=== PATIENT | female | born 1940 | race Caucasian/White ===

== ENCOUNTER 2022-02-27 09:29 | Inpatient (IN) | payer MEDICARE, BC ==
[2022-02-27] VITALS (13 sets, daily range): BP systolic 83–133; BP diastolic 52–95
[~2022-02-27] VITALS: Ht 165.1 cm; Wt 64.4 kg
[2022-02-27] MEDS ORDERED: IV NORMAL SALINE 1000 ML BAG IV ONE ×2 (09:30→10:30)
[2022-02-27] MEDS ORDERED: APIX2.5T PO (09:48)
[2022-02-27] MEDS ORDERED: AMIO100T4 PO (09:48)
[2022-02-27] MEDS ORDERED: D-MA1POW MC (09:48)
[2022-02-27] MEDS ORDERED: AMLO-212 PO (09:48)
[2022-02-27] MEDS ORDERED: DONE10TA44 PO (09:48)
[2022-02-27] MEDS ORDERED: MERC50TA PO (09:49)
[2022-02-27] MEDS ORDERED: ACET-73 PO (09:49)
[2022-02-27] MEDS ORDERED: ONDA4TAB11 PO (09:49)
[2022-02-27] MEDS ORDERED: SERT-439 PO (09:49)
[2022-02-27] MEDS ORDERED: LISI20TA30 PO (09:49)
[2022-02-27] MEDS ORDERED: HYDR453.3 TP (09:49)
[2022-02-27] MEDS ORDERED: METO25TA6 PO (09:49)
[2022-02-27] MEDS ORDERED: AMIODARONE HCL IV 900 MG in IV DEXTROSE 5% 500 ML IV ONE (10:00)
[2022-02-27] MEDS ORDERED: AMIODARONE HCL IV 150 MG in IV DEXTROSE 5% 100 ML IV ONE (10:00)
[2022-02-27 10:10] LABS: CARBON DIOXIDE 22 mmol/L (21-32); CHLORIDE 100 mmol/L (98-107); CREATININE 2.1 mg/dL (0.6-1.3); GLUCOSE 203 mg/dL (74-106); POTASSIUM 3.1 mmol/L (3.5-5.1); UREA NITROGEN, BLOOD 40 mg/dL (7-18)
[2022-02-27 10:22] LABS: ALANINE AMINOTRANSFERASE 29 U/L (14-59); ALKALINE PHOSPHATASE 94 U/L (50-136); ASPARTATE AMINOTRANSFERASE 36 U/L (15-37); BILIRUBIN,DIRECT 0.3 mg/dL (0.0-0.2); BILIRUBIN,TOTAL 1.5 mg/dL (0.2-1.0)
[2022-02-27 10:24] LABS: PHOSPHOROUS 4.6 mg/dL (2.5-4.9)
--- NOTE | 2022-02-27 10:25 | NUR ---
critical lab recieved from Jayne in lab, lactic 5.9 - results endorsed to
[2022-02-27] MEDS ORDERED: CEFTRIAXONE 1 G in IV DEXTROSE 5% 50 ML IV ONE (10:30)
[2022-02-27] MEDS ORDERED: CEFTRIAXONE /D5W 50ML IVPB **ER PYXIS IV ONE (10:33)
[2022-02-27 10:35] LABS: HEMATOCRIT 43.2 % (31.2-41.9); MEAN CORPUSCULAR HEMOGLOBIN 37.3 uug (24.7-32.8); MEAN CORPUSCULAR VOLUME 111.2 fL (75.5-95.3); PLATELET COUNT (AUTO) 381 K/uL (179-408)
[2022-02-27] MEDS: AMIODARONE HCL IV 450 MG in IV DEXTROSE 5% 250 ML IV PRN ×2 (10:40→17:10)
[2022-02-27] MEDS ORDERED: MAGNESIUM HYDROXIDE 30 ML LIQUID UDC PO PRN (11:00)
[2022-02-27] MEDS ORDERED: IV NS 1000 ML 1,000 ML IV PRN (11:00)
[2022-02-27] MEDS ORDERED: AMIODARONE HCL IV 450 MG in IV DEXTROSE 5% 250 ML IV PRN (11:00)
[2022-02-27] MEDS ORDERED: ACETAMINOPHEN 325 MG TABLET PO PRN (11:00)
[2022-02-27] MEDS ORDERED: ONDANSETRON 4 MG/2 ML VIAL IV PRN (11:00)
[2022-02-27] MEDS ORDERED: REMEDY ESSENTIAL ZINC PASTE 113 GM TP PRN (11:00)
--- NOTE | 2022-02-27 11:30 | NUR ---
Perineal care rendered.
[2022-02-27] MEDS ORDERED: PIPERACILLIN SODIUM/TAZOBACTAM 3.375 G in IV DEXTROSE 5% 50 ML IV SCH (12:00)
[2022-02-27] MEDS ORDERED: HYDROCORTISONE SOD SUCCINATE 100 MG/2 ML VIAL IV ONE ×2 (12:15→14:37)
[2022-02-27] MEDS ORDERED: ACETAMINOPHEN ES 500 MG TABLET- SA PATIENTS-PAIN ONLY PO PRN (12:15)
[2022-02-27] MEDS ORDERED: VANCOMYCIN IV 1,000 MG in IV DEXTROSE 5% 250 ML IV ONE (13:00)
--- NOTE | 2022-02-27 13:47 | NUR ---
Notified Rebecca Steven in regards to patient fluctuating blood pressure. BP drops to 80s systolic. Per Rebecca, she is trying to contact the son to clarify the POLST measures, and if vasopressors can be used on this patient.
[2022-02-27] MEDS ORDERED: ASPIRIN 300 MG RECTAL SUPP RC ONE ×2 (13:54→14:38)
--- NOTE | 2022-02-27 14:00 | NUR ---
At this time pt. transfer from 2A to room 1B via gurney and assisted by rn's. patient infusing with amiodarone drip running at 1mcg/kg/min. to RUHoney ML. Patient shaking uncontrollable and stating "I'm feeling cold" Hemodynamically on A-fib controlled uncontrolled. sbp of 117/70. Schulz to gravity with clear urine output. Over all pt. with history of skin CA and all over her body patient with skin bump lesions all over her body. Will continue to monitor.
[2022-02-27 14:07] LABS: *BILIRUBIN,URIN NEGATIVE (NEGATIVE); *BLOOD, URINE 1+ (NEGATIVE); *CLARITY,URINE SLIGHTLY CLOUDY (CLEAR); *COLOR,URINE LIGHT YELLOW (YELLOW); *KETONES,URINE NEGATIVE (NEGATIVE); *UROBILINOGEN,URINE 0.2 E.U./dl (NORMAL); LEUKOCYTE ESTERASE ,URINE 2+ (NEGATIVE); NITRITE, URINE POSITIVE (NEGATIVE); PH,URINE 5.5 (5.0-8.0); UGLUCOSE NEGATIVE (NEGATIVE)
--- NOTE | 2022-02-27 14:12 | NUR ---
PT's son and daughter at bedside and Rebecca Steven attending N.PEugenio at bedside discussing care plan with family.
[2022-02-27] MEDS: PIPERACILLIN/TAZO 2.25 G in IV DEXTROSE 5% 50 ML IV SCH ×2 (14:50→23:06)
[2022-02-27] MEDS ORDERED: ONDANSETRON 4 MG/2 ML VIAL ONE (15:30)
[2022-02-27 16:55] LABS: BACTERIA,URINE MA /HPF (NONE SEEN); SQUAMOUS EPITHELIAL CELL,UR FEW /HPF (NONE SEEN); WBC,URINE 20-50 /HPF (0-3)
[2022-02-27] MEDS ORDERED: PHENYLEPHRINE IV 100 MG in IV NORMAL SALINE 240 ML IV PRN (17:15)
[2022-02-27] MEDS ORDERED: POTASSIUM CHLORIDE 100 ML ONE (18:20)
[2022-02-27] MEDS: POTASSIUM CHLORIDE 50 ML IV SCH ×2 (18:21→19:09)
--- NOTE | 2022-02-27 19:15 | NUR ---
Pt received in bed awake and covered wiith several layers of cheets and blankets. Pt coered from the head with towels . Pt c/o feeling cold. Denir=es pain. Amiadarone drip infusing at 0.5 mg/hr via JALIL PICC line Cardias rhythm i shows atrial fibrillation on continuous cardiac monitoring,. Safety maintained. Bed in lowest position. Side rails up times 2. Pt is on room air. O2SAT 89 HR. Will continue to monitor. VS noted on nurses flow record. Skin color pale. Please reder to nursing flow record for skin asessment
--- NOTE | 2022-02-27 20:00 | NUR ---
Pt received in bed resting. Oriented to person. Reorient to pkace and time. Resp is unlabored. pT I
[2022-02-27] MEDS ORDERED: DONEPEZIL 10 MG TABLET PO SCH (21:00)
[2022-02-27] MEDS: APIXABAN 2.5 MG TABLET PO SCH (22:08)
--- NOTE | 2022-02-27 22:43 | NUR ---
Pt informed of swallow eval, and verbalizes understanding. Gag reflex present and patient was interactive with procedutre. Pt did not swallow. Pt held the water in her mouth before swallowing. Pill crushed and mixed water. No coughing while swallowing the fluid.
--- NOTE | 2022-02-27 22:51 | NUR ---
PT IS ON ROOM AIR. o2sAT 96. aMIADARONE DRIP AT .05 MG/HR AND INFUSING BU JALIL PICC LINE. pT HEAD IS CIVERED WITH TOWEL. PT ESTREMITIES ARE COLD AND LAYERS OF BLANKET IN PLACE. WILL CONTINU TO MONITOR STATUS.
[2022-02-27] MEDS ORDERED: PIPERACILLIN/TAZO 2.25 GM VIAL ONE (22:56)
[2022-02-27] MEDS ORDERED: PIPERACILLIN/TAZOBACTAM/D5W 50 ML ONE (22:56)
[2022-02-28] VITALS (27 sets, daily range): BP systolic 99–165; BP diastolic 40–100
[2022-02-28 06:09] LABS: MEAN CORPUSCULAR HEMOGLOBIN 38.6 uug (24.7-32.8); MEAN CORPUSCULAR VOLUME 107.9 fL (75.5-95.3); PLATELET COUNT (AUTO) 337 K/uL (179-408)
[2022-02-28 06:16] LABS: ALANINE AMINOTRANSFERASE 16 U/L (14-59); ALKALINE PHOSPHATASE 73 U/L (50-136); ASPARTATE AMINOTRANSFERASE 6 U/L (15-37); BILIRUBIN,TOTAL 0.7 mg/dL (0.2-1.0); CARBON DIOXIDE 23 mmol/L (21-32); CHLORIDE 106 mmol/L (98-107); CREATININE 2.1 mg/dL (0.6-1.3); GLUCOSE 106 mg/dL (74-106); MAGNESIUM 1.6 mg/dL (1.8-2.4); PHOSPHOROUS 4.2 mg/dL (2.5-4.9); TOTAL PROTEIN, SERUM 5.6 g/dL (6.4-8.2); UREA NITROGEN, BLOOD 40 mg/dL (7-18)
[2022-02-28 06:41] LABS: POTASSIUM 2.3 mmol/L (3.5-5.1)
[2022-02-28 06:42] LABS: VANCOMYCIN,RANDOM < 0.8 ug/mL (18.0-26.0)
[2022-02-28] MEDS ORDERED: PIPERACILLIN/TAZOBACTAM/D5W 50 ML ONE (07:24)
[2022-02-28] MEDS: PIPERACILLIN/TAZO 2.25 G in IV DEXTROSE 5% 50 ML IV SCH (07:36)
--- NOTE | 2022-02-28 08:00 | NUR ---
Assune care of Pt Received Pt semi awake. Arousable spontaneously. Pt is oriented times 3. S/O at the bedside, Resp iis even and unlabored. Received pt receiving Narcon drip infusing as ordered, by L forearm @ 50 ml/ hr. O2SAT is at 97% RR unlabored at 44. Pt HR is controlled, and noted on the nurses flow sheet per protocol. Temp 97.6 Will continue to monitor status.
[2022-02-28] MEDS ORDERED: PANTOPRAZOLE SODIUM 40 MG VIAL ONE (09:30)
[2022-02-28] MEDS ORDERED: SERTRALINE HCL 50 MG TABLET ONE (09:31)
[2022-02-28] MEDS: PANTOPRAZOLE SODIUM 40 MG VIAL IV SCH (09:43)
[2022-02-28] MEDS: SERTRALINE HCL 50 MG TABLET PO SCH (09:43)
[2022-02-28] MEDS: APIXABAN 2.5 MG TABLET PO SCH ×2 (09:43→21:33)
[2022-02-28] MEDS ORDERED: POTASSIUM CHLORIDE 50 ML ONE ×5 (09:47→15:16)
[2022-02-28] MEDS: POTASSIUM CHLORIDE 50 ML IV SCH ×6 (09:53→15:19)
[2022-02-28] MEDS ORDERED: MAGNESIUM SULFATE/D5W 100 ML IV SCH (10:00)
[2022-02-28] MEDS ORDERED: MAGNESIUM SULFATE/D5W 100 ML ONE (10:38)
--- NOTE | 2022-02-28 10:52 | NUR ---
Pt seen by Dr Stearns at this time. Patient is communicative. Abhijit camarillo off at this time. RR 16.. S/O is at [facility] bedside. Addendum: 02/28/22 at 1501 by [facility] RN3 RN Data ebtry error.
[2022-02-28] MEDS ORDERED: AMIODARONE HCL IV 450 MG in IV DEXTROSE 5% 250 ML IV PRN (11:30)
[2022-02-28] MEDS: VANCOMYCIN IV 750 MG in IV DEXTROSE 5% 250 ML IV SCH (11:47)
[2022-02-28] MEDS ORDERED: PIPERACILLIN/TAZOBACTAM/D5W 50 ML IV ONE (15:21)
[2022-02-28] MEDS: PIPERACILLIN SODIUM/TAZOBACTAM 3.375 G in IV DEXTROSE 5% 100 ML IV SCH (15:23)
--- NOTE | 2022-02-28 16:19 | NUR ---
Echo done at bedside at this time tolerating well.
[2022-03-01] VITALS (16 sets, daily range): BP systolic 92–149; BP diastolic 57–105
[2022-03-01] MEDS ORDERED: PIPERACILLIN SODIUM/TAZO 3.375 GM VIAL ONE (03:59)
[2022-03-01] MEDS ORDERED: PIPERACILLIN/TAZOBACTAM/D5W 50 ML IV ONE (04:00)
[2022-03-01] MEDS: PIPERACILLIN SODIUM/TAZOBACTAM 3.375 G in IV DEXTROSE 5% 100 ML IV SCH ×2 (04:44→16:00)
[2022-03-01 05:26] LABS: HEMATOCRIT 29.7 % (31.2-41.9); MEAN CORPUSCULAR HEMOGLOBIN 38.3 uug (24.7-32.8); MEAN CORPUSCULAR VOLUME 109.3 fL (75.5-95.3); PLATELET COUNT (AUTO) 299 K/uL (179-408)
[2022-03-01 05:34] LABS: CARBON DIOXIDE 25 mmol/L (21-32); CHLORIDE 103 mmol/L (98-107); CREATININE 2.2 mg/dL (0.6-1.3); GLUCOSE 233 mg/dL (74-106); MAGNESIUM 1.8 mg/dL (1.8-2.4); UREA NITROGEN, BLOOD 33 mg/dL (7-18)
[2022-03-01 05:38] LABS: POTASSIUM 2.6 mmol/L (3.5-5.1)
[2022-03-01] MEDS: APIXABAN 2.5 MG TABLET PO SCH ×2 (09:00→21:54)
[2022-03-01] MEDS: SERTRALINE HCL 50 MG TABLET PO SCH (09:00)
[2022-03-01] MEDS ORDERED: PANTOPRAZOLE SODIUM 40 MG VIAL ONE (09:17)
[2022-03-01] MEDS: PANTOPRAZOLE SODIUM 40 MG VIAL IV SCH (09:28)
[2022-03-01] MEDS ORDERED: POTASSIUM CHLORIDE 50 ML ONE (09:36)
[2022-03-01] MEDS: POTASSIUM CHLORIDE 50 ML IV SCH ×2 (09:42→10:03)
[2022-03-01] MEDS ORDERED: IV D5W-0.45% NS +20 KCL 1,000 ML IV PRN (09:45)
[2022-03-01] MEDS: VANCOMYCIN IV 750 MG in IV DEXTROSE 5% 250 ML IV SCH (11:40)
--- NOTE | 2022-03-01 13:32 | NUR ---
Seeing by BOOM CRANE OPERATOR this AM patient is waiting to be transferred to [facility] once bed becomes available as per BOOM CRANE OPERATOR. Nurse roustabout supervisor is aware.
--- NOTE | 2022-03-01 14:00 | NUR ---
[id number]--RECEIVED PT SLEEPY/LETHARGIC AT TIMES. VS ARE STABLE. PT CONT. IN A.FIB WITH HR 89-130. IV I/P VIARIGHT ARM PICC-LINE. PT CONT. ON AMIODORONE DRIP AT 0.5MG/HR. BATH AND LINEN CHANGE DONE.F/C I/P. U/O 250CC-YELL/SL. CLOUDY. PT HAS BEEN ON 02 2L/NC. PT HAS BEEN A/OX2-CONFUSED. PT AGITATED AT TIMES. PT MED WITH POTASSIUM 10MEQ IVPB BY PREVIOUS SHAILESH OSEI(BUT MED WASN'T SIGNED OFF-PHARM. INFORMED). GEN. COND. HAS BEEN STABLE/GUARDED. PT ENDORSED TO SHAILESH SLOAN. ARNALDO CASH
--- NOTE | 2022-03-01 20:00 | NUR ---
Pt received in bed with Amiadarone drip maintained at 5 mg/hr, AFIB with rapid response. HR 129. Pt c/o mouth pain. Will administer Tylenol, as ordered.
--- NOTE | 2022-03-01 21:21 | NUR ---
Pt tolerateds ice chip as ordered. OK to administer Eliquist now as per Dr Templeton.
[2022-03-01] MEDS ORDERED: DILTIAZEM HCL 30 MG TABLET ONE (21:50)
--- NOTE | 2022-03-01 22:00 | NUR ---
AMIADARONE DRIP IN PROGRESS ORDERED.. rATE OF DRIP 5 5MG/HR.
[2022-03-01] MEDS ORDERED: ACETAMINOPHEN 325 MG TABLET ONE (22:17)
[2022-03-02] VITALS (27 sets, daily range): BP systolic 102–157; BP diastolic 50–113
--- NOTE | 2022-03-02 | NUR ---
PT offered ice chips as ordered and tolerating. Amiadarone drip infusing at 5 mg/hr, as ordered. as ordered.
[2022-03-02] MEDS: DILTIAZEM HCL 30 MG TABLET PO SCH ×2 (00:24→06:37)
[2022-03-02] MEDS: PIPERACILLIN SODIUM/TAZOBACTAM 3.375 G in IV DEXTROSE 5% 100 ML IV SCH ×2 (04:21→15:40)
[2022-03-02 05:09] LABS: HEMATOCRIT 30.6 % (31.2-41.9); MEAN CORPUSCULAR HEMOGLOBIN 38.4 uug (24.7-32.8); MEAN CORPUSCULAR VOLUME 109.5 fL (75.5-95.3); PLATELET COUNT (AUTO) 310 K/uL (179-408)
[2022-03-02] MEDS ORDERED: DILTIAZEM HCL 30 MG TABLET ONE (05:15)
[2022-03-02 05:19] LABS: CARBON DIOXIDE 25 mmol/L (21-32); CHLORIDE 107 mmol/L (98-107); GLUCOSE 161 mg/dL (74-106); UREA NITROGEN, BLOOD 26 mg/dL (7-18)
[2022-03-02 05:27] LABS: POTASSIUM 2.7 mmol/L (3.5-5.1)
[2022-03-02] MEDS: POTASSIUM CHLORIDE 50 ML IV SCH ×4 (06:00→10:52)
[2022-03-02] MEDS ORDERED: POTASSIUM CHLORIDE 0 ML ONE (06:00)
[2022-03-02] MEDS ORDERED: POTASSIUM CHLORIDE 10 MEQ TAB.PRT.SR PO ONE (06:00)
[2022-03-02] MEDS ORDERED: POTASSIUM CHLORIDE 50 ML ONE ×2 (06:01→09:48)
[2022-03-02] MEDS ORDERED: POTASSIUM CHLORIDE 20 MEQ POWDER PACKET ONE (06:02)
[2022-03-02] MEDS ORDERED: POTASSIUM CHLORIDE 20 MEQ TAB.PRT.SR ONE (06:02)
[2022-03-02] MEDS ORDERED: MAGNESIUM SULFATE/D5W 100 ML IV SCH (06:45)
[2022-03-02] MEDS ORDERED: POTASSIUM CHLORIDE 20 MEQ POWDER PACKET PO STA (06:49)
--- NOTE | 2022-03-02 07:00 | NUR ---
Received pt. on monitoring manager afib-controlled/uncontrolled/sinus with rate up to 130's. sbp within desired limits. On room air with saturation of 94-97 %. Patient slightly distress. Follows commands. Schulz catheter to gravity picc line patent. Awaiting swallow eval. will continue to monitor.
--- NOTE | 2022-03-02 07:10 | NUR ---
A call to handle assembler Dr. Obando report given on the phone informed pt. remains on uncontrolled A-fib and on amiodarone drip. As stated "I'll follow up on pt. later on"
[2022-03-02] MEDS ORDERED: POTASSIUM CHLORIDE 20 MEQ POWDER PACKET GT ONE (08:00)
--- NOTE | 2022-03-02 08:05 | NUR ---
patient refused PO potasium 30 mg by mouth. kcl 20 meq IV given as ordered. Pharmacy notified of order and that medication was retrieved
--- NOTE | 2022-03-02 08:27 | NUR ---
Cardiology services, Dr. Obando in the unit to examine pt. orders to change drip to diltiazem received and to stop IV fluids. informed that pt. is unable to swallow pills.
[2022-03-02] MEDS: DILTIAZEM HCL IV 125 MG in IV NORMAL SALINE 100 ML IV PRN ×2 (09:06→20:53)
[2022-03-02] MEDS ORDERED: MAGNESIUM SULFATE/D5W 200 ML ONE (09:45)
[2022-03-02] MEDS ORDERED: SERTRALINE HCL 50 MG TABLET ONE (09:47)
[2022-03-02] MEDS ORDERED: PANTOPRAZOLE SODIUM 40 MG VIAL ONE (09:47)
[2022-03-02] MEDS ORDERED: AMIODARONE HCL 200 MG TABLET ONE ×2 (09:47→20:36)
[2022-03-02] MEDS: SERTRALINE HCL 50 MG TABLET PO SCH (09:50)
[2022-03-02] MEDS: PANTOPRAZOLE SODIUM 40 MG VIAL IV SCH (09:50)
[2022-03-02] MEDS: MAGNESIUM SULFATE/D5W 100 ML IV SCH ×2 (09:50→10:27)
[2022-03-02] MEDS: AMIODARONE HCL 200 MG TABLET PO SCH ×2 (09:50→20:38)
[2022-03-02] MEDS: APIXABAN 2.5 MG TABLET PO SCH (09:51)
--- NOTE | 2022-03-02 11:00 | NUR ---
Attending Jaron Steven in the unit to see and examine pt. report given orders to continue with care plan received and implemented.
--- NOTE | 2022-03-02 18:08 | NUR ---
Left pt. on library monitor afib-controlled/ uncontrolled with the highest in 110 non-sustained. sbp within desired limits. On room air with saturation of 96-97 %. Afebrile Patient slightly distress. Follows commands. Davison catheter to gravity picc line patent. Patient pass swallow evaluation on puree diet. davison to gravity. Will endorse to incoming shift.
--- NOTE | 2022-03-02 19:30 | NUR ---
Pt. was endorsed by melanie Gregg. Initial assessment completed and will document on flowsheet. Pt. remains on Cardizem gtts. at 15mg/hr. Cardiac rhythym Afib controlled at this time. BP monitored via automatic NIBP cuff to right calf. Appears comfortable. Monitored for acute distress.
[2022-03-02] MEDS ORDERED: HEPARIN SODIUM,PORCINE 5,000 UNITS/ML VIAL ONE (20:36)
[2022-03-02] MEDS: HEPARIN SODIUM,PORCINE 5,000 UNITS/ML VIAL SQ SCH (20:41)
[2022-03-02] MEDS ORDERED: ENOXAPARIN SODIUM 40 MG/0.4 ML DISP.SYRIN SQ SCH (21:00)
--- NOTE | 2022-03-02 21:00 | NUR ---
Pt. cleansed of diarrhea. complete linene change with skin care to red excoriated perineal area and buttocks. Pt. extremely tender and resistant to getting washed. Remedy barrier cream applied to excoriated areas. Scheduled meds given without incident. Monitored for aspiration. Juice requested and given. VSS
[2022-03-03] VITALS (15 sets, daily range): BP systolic 87–177; BP diastolic 38–99
--- NOTE | 2022-03-03 | NUR ---
Pt. has not been sleeping. Awake and screaming at times. Removing nasal canula constantly. Desaturates to 88%. attrempts to remove o2Sat device and BP cuff. Pt. screaming when attempts made to replace medical equipment. No distress or c/o pain.
--- NOTE | 2022-03-03 04:15 | NUR ---
Pt. awake. Quiet at times. No yelling but remains talkative. Continues to remove nasal canula . BP moved to left upper arm. VS q 1 hour as pt. complains of BP cuff hurtung her when inflating. Diltiazem gtts at 10mg/hr. VSS. Controlled AFIB
[2022-03-03] MEDS: PIPERACILLIN SODIUM/TAZOBACTAM 3.375 G in IV DEXTROSE 5% 100 ML IV SCH ×3 (04:46→20:43)
[2022-03-03 05:02] LABS: HEMATOCRIT 31.3 % (31.2-41.9); MEAN CORPUSCULAR HEMOGLOBIN 38.8 uug (24.7-32.8); MEAN CORPUSCULAR VOLUME 108.9 fL (75.5-95.3); PLATELET COUNT (AUTO) 314 K/uL (179-408)
[2022-03-03 05:36] LABS: CARBON DIOXIDE 27 mmol/L (21-32); CHLORIDE 109 mmol/L (98-107); CREATININE 1.6 mg/dL (0.6-1.3); GLUCOSE 84 mg/dL (74-106); UREA NITROGEN, BLOOD 17 mg/dL (7-18)
[2022-03-03 05:39] LABS: POTASSIUM 2.8 mmol/L (3.5-5.1)
--- NOTE | 2022-03-03 06:30 | NUR ---
Pt. continues to be combative at times. She mainly refuses to keep diagnostic equipment in pplace. Removes EKG electrodes, NIBP and nasal cannnula. Dr. Pulido gave T>O> for Ativan0.5mg IVP x 1 dose and soft restraint order.
[2022-03-03] MEDS ORDERED: LORAZEPAM 2 MG/1 ML VIAL IV ONE (06:45)
[2022-03-03] MEDS ORDERED: LORAZEPAM 2 MG/1 ML VIAL ONE (06:47)
--- NOTE | 2022-03-03 07:10 | NUR ---
Pt. endorsed with restraints intact. Diltiazem gtts. down to 10 mg. /hr . Pt.more calm than previously but still resistant to keeping oxegen on. Remains in controlled Afib. BP monitored hourly as pt. doesnt like the pressure of the cuff. rotated from right leg ,to left leg ,to left arm with pt. yet not able to tolerate. Monitored for acute distress.
[2022-03-03] MEDS ORDERED: DILTIAZEM HCL 30 MG TABLET PO SCH (07:45)
[2022-03-03] MEDS ORDERED: POTASSIUM CHLORIDE 20 MEQ POWDER PACKET PO ONE (07:45)
[2022-03-03] MEDS ORDERED: PANTOPRAZOLE SODIUM 40 MG VIAL ONE (07:57)
[2022-03-03] MEDS ORDERED: AMIODARONE HCL 200 MG TABLET ONE (07:57)
[2022-03-03] MEDS ORDERED: HEPARIN SODIUM,PORCINE 5,000 UNITS/ML VIAL ONE (07:57)
[2022-03-03] MEDS ORDERED: SERTRALINE HCL 50 MG TABLET ONE (07:58)
[2022-03-03] MEDS ORDERED: POTASSIUM CHLORIDE 200 ML ONE (08:09)
[2022-03-03] MEDS ORDERED: POTASSIUM CHLORIDE 20 MEQ POWDER PACKET ONE (08:10)
[2022-03-03] MEDS: PANTOPRAZOLE SODIUM 40 MG VIAL IV SCH (08:11)
[2022-03-03] MEDS: HEPARIN SODIUM,PORCINE 5,000 UNITS/ML VIAL SQ SCH (08:11)
[2022-03-03] MEDS: SERTRALINE HCL 50 MG TABLET PO SCH (08:12)
[2022-03-03] MEDS: AMIODARONE HCL 200 MG TABLET PO SCH ×2 (08:12→20:43)
[2022-03-03] MEDS: POTASSIUM CHLORIDE 50 ML IV SCH ×4 (08:13→10:43)
[2022-03-03] MEDS ORDERED: DILTIAZEM HCL 60 MG TABLET ONE ×2 (08:14→12:31)
[2022-03-03] MEDS: DILTIAZEM HCL IV 125 MG in IV NORMAL SALINE 100 ML IV PRN (09:41)
--- NOTE | 2022-03-03 11:10 | NUR ---
Attending Max in the unit to see and examine pt. report given orders to stop cardizem drip received and implemented. Orders to downgrade pt. to [facility]
--- NOTE | 2022-03-03 11:15 | NUR ---
Roll Mechanic notified of the need of a [facility] bed.
[2022-03-03] MEDS ORDERED: MAGNESIUM SULFATE/D5W 200 ML ONE (11:32)
[2022-03-03] MEDS: MAGNESIUM SULFATE/D5W 100 ML IV SCH ×2 (11:35→12:46)
[2022-03-03] MEDS: DILTIAZEM HCL 60 MG TABLET PO SCH ×3 (12:33→23:24)
[2022-03-03] MEDS ORDERED: PROPOFOL 100 ML ONE (13:05)
--- NOTE | 2022-03-03 13:50 | NUR ---
Telephone report given to R.Paulina> Apolonia francois. will be going to room 314.
--- NOTE | 2022-03-03 14:06 | NUR ---
Patient vegetable picker by Hiar cali and her orientee Patient left AAOx3. vitals stable picc line in place and running with antibiotic and tko. All belongings and chart sent with pt.
--- NOTE | 2022-03-03 14:10 | NUR ---
transferred from ccu to [facility] STATUS with bp 91/60, hr 66, o2 sat 100% on 2l. no ss of distress closely monitored
--- NOTE | 2022-03-03 18:45 | NUR ---
Jean Rojo, son of pt., gave permission to provide medical information of pt to siblings, Micheal Rojo and Regi Alia.
--- NOTE | 2022-03-03 20:00 | NUR ---
Received patient lying in bed. AAO to self only. Able to follow direction. Calm and cooperative. Jone wrist restraint in place Check circulation on both hands/wrist area. A fib on tele with BBB, HR of 73/min. Right upper arm midline intact and patent. O2 sat at 97% on RA. In no apparent distress. Need assessed and anticipated to. Safety measure initiated. Continue to monitor.
[2022-03-03] MEDS: APIXABAN 2.5 MG TABLET PO SCH (20:44)
[2022-03-04] MEDS: PIPERACILLIN SODIUM/TAZOBACTAM 3.375 G in IV DEXTROSE 5% 100 ML IV SCH ×3 (03:24→22:29)
[2022-03-04 04:19] VITALS: BP 125/74
[2022-03-04] MEDS: DILTIAZEM HCL 60 MG TABLET PO SCH ×3 (06:31→18:32)
--- NOTE | 2022-03-04 06:51 | NUR ---
In no acute distress. Denies any pain or SOB. PICC line on right upper arm intact and patent. ABX infusing. No adverse effect noted from IV ABX. A fib controlled on tele with BBB, HR 95/min. Wrist restraint remain in place. Schulz catheter intact and draining via gravity. Needs attended to and met. Safety measure maintained.
[2022-03-04 07:17] LABS: HEMATOCRIT 32.4 % (31.2-41.9); MEAN CORPUSCULAR HEMOGLOBIN 37.9 uug (24.7-32.8); PLATELET COUNT (AUTO) 316 K/uL (179-408)
--- NOTE | 2022-03-04 07:30 | NUR ---
Recieved pt. from SHAILESH Perkins. Pt is in and out of confusion. Pt still combative. Continuing bilateral mittons. Pt on NC @ 96%. Controlled AFib on monitor at a rate of 80-90 bpm.
[2022-03-04 07:33] LABS: MAGNESIUM 2.2 mg/dL (1.8-2.4); PHOSPHOROUS 1.4 mg/dL (2.5-4.9)
[2022-03-04 08:04] VITALS: BP 139/76
[2022-03-04 08:12] LABS: CARBON DIOXIDE 25 mmol/L (21-32); CHLORIDE 112 mmol/L (98-107); CREATININE 1.6 mg/dL (0.6-1.3); GLUCOSE 88 mg/dL (74-106); POTASSIUM 3.8 mmol/L (3.5-5.1); UREA NITROGEN, BLOOD 16 mg/dL (7-18)
[2022-03-04] MEDS: AMIODARONE HCL 200 MG TABLET PO SCH ×2 (08:43→20:08)
[2022-03-04] MEDS: SERTRALINE HCL 50 MG TABLET PO SCH (08:43)
[2022-03-04] MEDS: APIXABAN 2.5 MG TABLET PO SCH ×2 (08:44→20:09)
[2022-03-04] MEDS: PANTOPRAZOLE ORAL SUSPENSION 40 MG SUSPDR.PKT PO SCH (08:44)
[2022-03-04] MEDS ORDERED: POTASSIUM PHOSPHATE MM 15 MMOL in IV NORMAL SALINE 250 ML IV ONE (10:00)
--- NOTE | 2022-03-04 11:16 | NUR ---
WOUND CARE CONSULT: PT PRESENTS WITH AREAS OF DISCOLORATION TO UPPER AND LOWER EXTREMITIES, AREA OF DIFFUSE DISCOLORATION TO RT HEEL, MIDCHEST DRY LESION AND RASH TO BUTTOCKS AND PERINEUM. RECOMMENDATIONS MADE FOR SKIN PROTECTION. DISCUSSED WITH NURSING STAFF. SYKES CATH NOTED. PT NOTED TO BE INCONTINENT OF LOOSE STOOL. PT NOTED TO BE RUBBING HER HEELS ON THE BED. PT MOVES ABOUT IN BED FREQUENTLY. PT IRRITABLE AND ANGRY AT TIMES AND IS COMBATIVE AT TIMES PER NURSING STAFF. MD IN AGREEMENT WITH PLAN OF CARE.
--- NOTE | 2022-03-04 11:45 | NUR ---
Seen by hospitalist. See notes. Noted labs with order to give KPhos as ordered. Change status from [facility] to telemetry. No acute changes from morning. Pt still combative and wearing mittons. AFib controlled at a rate of 80-90%. Will continue to monitor.
[2022-03-04 12:15] VITALS: BP 113/81
[2022-03-04] MEDS ORDERED: FUROSEMIDE 20 MG/2 ML VIAL IV ONE (12:30)
[2022-03-04 16:00] VITALS: BP 111/59
[2022-03-04] MEDS: CLOTRIMAZOLE 1% CREAM 30 GM TUBE TOP SCH (17:11)
[2022-03-04 17:44] VITALS: BP 112/59
--- NOTE | 2022-03-04 18:05 | NUR ---
Pt is more awake. Talking with son. No signs of respiratory distress with NC @ 3L and SpO2 98%. Controlled AFib on monitor.
--- NOTE | 2022-03-04 19:30 | NUR ---
Received patient lying in bed. Asleep but easily arouse to verbal stimuli. AAO to self only. Calm and cooperative In no apparent distress. Jone wrist restraint in place. Check circulation on both hands/wrist area. A fib on tele with BBB, HR of 72/min. Right upper arm PICC intact and patent. Need assessed and anticipated to. Safety measure initiated.
[2022-03-04 19:54] VITALS: BP 114/63
[2022-03-05 00:02] VITALS: BP 128/78
[2022-03-05] MEDS: DILTIAZEM HCL 60 MG TABLET PO SCH ×2 (00:06→05:18)
[2022-03-05] MEDS: PIPERACILLIN SODIUM/TAZOBACTAM 3.375 G in IV DEXTROSE 5% 100 ML IV SCH ×2 (04:17→12:13)
--- NOTE | 2022-03-05 04:59 | NUR ---
No adverse reaction noted from IV antibiotic. PICC line with no signs or symptoms of infection. Schulz catheter intact and draining via gravity. Bilateral wrist restraint still in place. Circulation on hands/wrist checked. A. fib/A flutter with BBB and rare PVC's on tele, HR 84/min. Needs anticipated and attended to. Safety measure maintained.
[2022-03-05 05:23] VITALS: BP 132/69
[2022-03-05 06:50] LABS: HEMATOCRIT 33.4 % (31.2-41.9); MEAN CORPUSCULAR HEMOGLOBIN 38.3 uug (24.7-32.8); MEAN CORPUSCULAR VOLUME 110.1 fL (75.5-95.3); PLATELET COUNT (AUTO) 272 K/uL (179-408)
[2022-03-05 06:58] LABS: CARBON DIOXIDE 27 mmol/L (21-32); CHLORIDE 108 mmol/L (98-107); CREATININE 1.7 mg/dL (0.6-1.3); GLUCOSE 85 mg/dL (74-106); MAGNESIUM 1.6 mg/dL (1.8-2.4); PHOSPHOROUS 2.6 mg/dL (2.5-4.9); POTASSIUM 3.7 mmol/L (3.5-5.1); UREA NITROGEN, BLOOD 14 mg/dL (7-18)
[2022-03-05] MEDS: PANTOPRAZOLE ORAL SUSPENSION 40 MG SUSPDR.PKT PO SCH (08:57)
[2022-03-05] MEDS: AMIODARONE HCL 200 MG TABLET PO SCH (09:00)
[2022-03-05] MEDS: SERTRALINE HCL 50 MG TABLET PO SCH (09:00)
[2022-03-05] MEDS: APIXABAN 2.5 MG TABLET PO SCH (09:01)
[2022-03-05] MEDS: CLOTRIMAZOLE 1% CREAM 30 GM TUBE TOP SCH ×2 (09:01→16:42)
--- NOTE | 2022-03-05 09:20 | NUR ---
Pt received to care, A/O x1-2, no distress noted. soft restrains are on, pt is calm on approach.
[2022-03-05] MEDS: MAGNESIUM SULFATE/D5W 100 ML IV SCH ×2 (09:38→10:57)
[2022-03-05] MEDS ORDERED: DILTIAZEM HCL CD 240 MG CAP.SR.24H PO SCH (11:00)
[2022-03-05 11:30] VITALS: BP 108/74
[2022-03-05] MEDS ORDERED: DILT240C88 PO (13:24)
[2022-03-05 16:46] VITALS: BP 118/61
--- NOTE | 2022-03-05 17:35 | NUR ---
pt is being discharged to ARU. Family is aware. VS are stable, no distress.
== END 2022-03-05 17:52 | DRG 871 ==
LOC: ER 09:29 → TRANSITION 13:24 → TELE-TD3 03-03 14:14 → TELE3 03-04 10:31
PROVIDERS: ADMIT Nurse Practitioner Acute Care; ATTEND Nurse Practitioner Acute Care
PROC: 05H533Z Insertion of Infusion Device into Right Subclavian Vein, Percutaneous Approach (ICD-10-PCS; principal; 2022-02-27)
PROC: B546ZZA Ultrasonography of Right Subclavian Vein, Guidance (ICD-10-PCS; 2022-02-27)
PROC: 02HV33Z Insertion of Infusion Device into Superior Vena Cava, Percutaneous Approach (ICD-10-PCS; 2022-02-27)
PROC: B548ZZA Ultrasonography of Superior Vena Cava, Guidance (ICD-10-PCS; 2022-02-27)
DX: A41.9 Sepsis, unspecified organism (principal); G93.41 Metabolic encephalopathy; N17.0 Acute kidney failure with tubular necrosis; I21.A1 Myocardial infarction type 2; I50.21 Acute systolic (congestive) heart failure; N39.0 Urinary tract infection, site not specified; E87.20 Acidosis, unspecified; E44.0 Moderate protein-calorie malnutrition; I13.0 Hypertensive heart and chronic kidney disease with heart failure and stage 1 through stage 4 chronic kidney disease, or unspecified chronic kidney disease; R65.20 Severe sepsis without septic shock; I48.0 Paroxysmal atrial fibrillation; E78.5 Hyperlipidemia, unspecified; E86.0 Dehydration; E86.1 Hypovolemia; E87.6 Hypokalemia; E88.09 Other disorders of plasma-protein metabolism, not elsewhere classified; Z20.822 Contact with and (suspected) exposure to COVID-19; Z66 Do not resuscitate; Z79.01 Long term (current) use of anticoagulants; N18.9 Chronic kidney disease, unspecified; Z85.828 Personal history of other malignant neoplasm of skin; Z88.2 Allergy status to sulfonamides; Z68.23 Body mass index [BMI] 23.0-23.9, adult; F03.90 Unspecified dementia, unspecified severity, without behavioral disturbance, psychotic disturbance, mood disturbance, and anxiety; F09 Unspecified mental disorder due to known physiological condition; B96.89 Other specified bacterial agents as the cause of diseases classified elsewhere
CPT/HCPCS: 36415; 70450; 71045; 76770; 83605; 83735; 84100; 84484; 85025; 87040; 87086; 93005; 93307; A4663; C1758; C9113; G0378; J0282; J0696; J1644; J1720; J1940; J2060; J2370; J2405; J2543; J3370; J3475; J3480; J3490; J7040; J7050

== ENCOUNTER 2022-03-05 18:53 | Inpatient (IN) | payer MEDICARE, BC ==
[~2022-03-05] VITALS: Ht 167.6 cm; Wt 54.7 kg
[~2022-03-05 18:53] MED LIST: ACET-73 PO; AMIO100T4 PO; AMLO-212 PO; APIX2.5T PO; D-MA1POW MC; DILT240C88 PO; DONE10TA44 PO; HYDR453.3 TP; LISI20TA30 PO; MERC50TA PO; METO25TA6 PO; ONDA4TAB11 PO; SERT-439 PO
--- NOTE | 2022-03-05 19:36 | NUR ---
Received patient sleeping comfortably in bed. No signs of distress noted at this time. JALIL PICC line is patent and intact. Dressing is dry and clean. Schulz catheter is clean and intact. Safety and comfort measures enforced.Continued rehab admission process.
[2022-03-05 20:00] VITALS: BP 115/70
[2022-03-05] MEDS ORDERED: OXYCODONE/APAP 5-325 MG TABLET PO PRN (21:30)
[2022-03-06 04:00] VITALS: BP 120/67
--- NOTE | 2022-03-06 07:01 | NUR ---
Patient slept intermittently throughout the night. Yells on occasion when having to turn to clean them, however can be cooperative through use of distraction. BM x1 during the shift. Soft and liquid stool. Schulz catheter clean and intact. Safety and comfort measures maintained.
--- NOTE | 2022-03-06 07:30 | NUR ---
Report received from night nurse, she added that pt also has a saline lock peripheral IV in her right FA. Skin around clean dry and intake, no redness or signs of infection.
[2022-03-06 07:46] VITALS: BP 116/86
[2022-03-06] MEDS ORDERED: AMIODARONE HCL 200 MG TABLET PO SCH ×2 (11:30)
[2022-03-06] MEDS ORDERED: DILTIAZEM HCL CD 240 MG CAP.SR.24H PO SCH (11:30)
[2022-03-06] MEDS: DILTIAZEM HCL CD 240 MG CAP.SR.24H PO SCH (11:55)
[2022-03-06] MEDS: SERTRALINE HCL 50 MG TABLET PO SCH (11:55)
[2022-03-06] MEDS: APIXABAN 2.5 MG TABLET PO SCH ×2 (11:56→20:26)
--- NOTE | 2022-03-06 12:27 | NUR ---
With LIEN Gudino, changed pt's diaper and washed her bottom which has a large, place harshal sized very red bedsore from before admission. There are some places where it looks like it's bleeding a little. Pt complaining and combative during change. Was distracted by talking to her. All diarrhea removed. Z-guard applied to entire area. This is her second diarrhea and change today. Recommend change with 2 people.
--- NOTE | 2022-03-06 13:25 | NUR ---
Pt's son Jean, dtr in law, and friend Dorota at bedside. Spoke to son Jean who said that he thinks her Afib caused her syncope episode and then she had a UTI which has kept her in the hospital. Updated son re pt care, safety measures in place. Son waiting to talk to the case managers. Call light in reach.
--- NOTE | 2022-03-06 15:04 | NUR ---
[facility] called asking for pt's family to please bring Mercaptopurine medication from [facility] where she had been staying. I called Jerri at [facility], , they double package this medication with other meds and can't give it to the family to bring here. I also spoke to pt's son, Jean, he is going to call his sister to find out which MD prescribed it and ask for a reorder to peanut picker from the pharmacy and bring here. Waiting to hear back.
[2022-03-06 16:26] VITALS: BP 108/49
[2022-03-06] MEDS: DONEPEZIL 10 MG TABLET PO SCH (20:22)
[2022-03-06 21:03] VITALS: BP 111/79
--- NOTE | 2022-03-07 04:34 | NUR ---
Resting in bed upon initial rounds. AAOx1 Confused and disoriented. All due meds given without any difficulty. VSS. Repositioned in bed. Call orr within reach. Bed alarm on. No acute distress noted. Kept comfortable. Schulz catheter intact draining yellow urine. I & O monitor. Incontinent of BM x1. kept clean and dry.Needs attended. Siderails up for safety.
[2022-03-07 07:46] VITALS: BP 155/78
[2022-03-07] MEDS ORDERED: MERCAPTOPURINE PO SCH (09:00)
[2022-03-07] MEDS: DILTIAZEM HCL CD 240 MG CAP.SR.24H PO SCH (10:19)
[2022-03-07] MEDS: APIXABAN 2.5 MG TABLET PO SCH ×2 (10:20→17:28)
[2022-03-07] MEDS: SERTRALINE HCL 50 MG TABLET PO SCH (10:21)
[2022-03-07] MEDS: [UNRECOGNIZED DRUG - OTHER] PO SCH (11:58)
[2022-03-07] MEDS: MERCAPTOPURINE 50 MG PO SCH (11:58)
[2022-03-07 15:39] VITALS: BP 109/56
[2022-03-07 20:00] VITALS: BP 123/54
[2022-03-07] MEDS: DONEPEZIL 10 MG TABLET PO SCH (20:08)
[2022-03-08 04:00] VITALS: BP 139/1
--- NOTE | 2022-03-08 05:18 | NUR ---
Confused and disoriented. VSS Needs attended. All due meds given without difficulty. No acute distress noted. PM care done. Repositioned for comfort. Turned to sides. Schulz catheter intact draining yellow urine. I & O monitor. Will monitor patient.
[2022-03-08 08:47] VITALS: BP 120/81
[2022-03-08] MEDS: DILTIAZEM HCL CD 240 MG CAP.SR.24H PO SCH (09:15)
[2022-03-08] MEDS: APIXABAN 2.5 MG TABLET PO SCH ×2 (09:15→17:27)
[2022-03-08] MEDS: SERTRALINE HCL 50 MG TABLET PO SCH (09:16)
[2022-03-08] MEDS: [UNRECOGNIZED DRUG - OTHER] PO SCH (09:16)
[2022-03-08] MEDS: MERCAPTOPURINE 50 MG PO SCH (09:16)
--- NOTE | 2022-03-08 14:06 | NUR ---
INDIVIDUALIZED PLAN OF CARE
[2022-03-08 16:31] VITALS: BP 126/75
[2022-03-08] MEDS: ENSURE ENLIVE (VAN) 240 ML LIQUID PO SCH (17:28)
[2022-03-08 20:00] VITALS: BP 125/68
[2022-03-08] MEDS: DONEPEZIL 10 MG TABLET PO SCH (21:50)
[2022-03-08] MEDS: CLOTRIMAZOLE 1% CREAM 30 GM TUBE TOP SCH (21:50)
[2022-03-09 04:00] VITALS: BP 122/66
--- NOTE | 2022-03-09 04:39 | NUR ---
Shift NOTE: START OF SHIFT PT CONFUSED ATTEMPTING GET OUT OF BED PATIENT. PT HAD A ;LARGE BOWEL MOVEMENT AND CLEANED DRIED NEW GOWN APPLIED NO SIGNS OF RESPIRATORY DISTRESS NOTED. PT GIVEN MEDICATION ORDERED NO SIGNS OF ADVERSE REACTION NOTED. WILL CONTINUE TO MONITOR HOURLY FOR SAFETY AND FALLS. WILL ENDORSE TO AM NURSE.
[2022-03-09 07:20] LABS: HEMATOCRIT 33.2 % (31.2-41.9); MEAN CORPUSCULAR HEMOGLOBIN 38.2 uug (24.7-32.8); PLATELET COUNT (AUTO) 219 K/uL (179-408)
[2022-03-09 07:42] LABS: CARBON DIOXIDE 27 mmol/L (21-32); CHLORIDE 108 mmol/L (98-107); CREATININE 1.5 mg/dL (0.6-1.3); GLUCOSE 74 mg/dL (74-106); MAGNESIUM 1.6 mg/dL (1.8-2.4); PHOSPHOROUS 3.4 mg/dL (2.5-4.9); UREA NITROGEN, BLOOD 12 mg/dL (7-18)
[2022-03-09 07:56] VITALS: BP 139/78
[2022-03-09] MEDS: DILTIAZEM HCL CD 240 MG CAP.SR.24H PO SCH (09:00)
[2022-03-09] MEDS ORDERED: MAGNESIUM OXIDE 400 MG TABLET PO ONE (10:00)
[2022-03-09] MEDS: SERTRALINE HCL 50 MG TABLET PO SCH (10:12)
[2022-03-09] MEDS: APIXABAN 2.5 MG TABLET PO SCH ×2 (10:13→17:15)
[2022-03-09] MEDS: ENSURE ENLIVE (VAN) 240 ML LIQUID PO SCH ×2 (10:14→17:14)
[2022-03-09] MEDS: CLOTRIMAZOLE 1% CREAM 30 GM TUBE TOP SCH ×2 (10:14→17:14)
[2022-03-09] MEDS: [UNRECOGNIZED DRUG - OTHER] PO SCH (10:14)
[2022-03-09] MEDS: MERCAPTOPURINE 50 MG PO SCH (10:14)
[2022-03-09 16:00] VITALS: BP 114/79
--- NOTE | 2022-03-09 18:31 | NUR ---
Patient found in bed. She is alert and oriented with confusion. She did tried getting out of bed and pull on things. Patient is incont with F/C. Patient has a bad rash on buttocks. Normal air movement with no apparent distress noted. Medications are mixed with apple sauce but not crushed. Patient walked with PT today.. No new concerns noted. Will continue monitor patient hourly for safety measures.
[2022-03-09 20:00] VITALS: BP 139/88
[2022-03-09] MEDS: DONEPEZIL 10 MG TABLET PO SCH (20:55)
[2022-03-10 04:00] VITALS: BP 133/87
[2022-03-10] MEDS: MERCAPTOPURINE 50 MG PO SCH (09:24)
[2022-03-10] MEDS: SERTRALINE HCL 50 MG TABLET PO SCH (09:24)
[2022-03-10] MEDS: [UNRECOGNIZED DRUG - OTHER] PO SCH (09:24)
[2022-03-10] MEDS: DILTIAZEM HCL CD 240 MG CAP.SR.24H PO SCH (09:30)
[2022-03-10] MEDS: CLOTRIMAZOLE 1% CREAM 30 GM TUBE TOP SCH ×2 (09:31→17:33)
[2022-03-10] MEDS: APIXABAN 2.5 MG TABLET PO SCH ×2 (09:32→17:32)
[2022-03-10] MEDS: ENSURE ENLIVE (VAN) 240 ML LIQUID PO SCH ×2 (09:38→17:32)
[2022-03-10 11:05] VITALS: BP 115/64
[2022-03-10 16:02] VITALS: BP 120/47
--- NOTE | 2022-03-10 19:26 | NUR ---
Pt. is alert and oriented x1-2, and speaks Bangladeshi. Pt. participates in physical and occupational therapy per MD order. Pt. tolerates PO medications as ordered. Pt. is on a soft diet and tolerates well. RN removed Schulz catheter at 11:25AM. Pt. pending void. At 16:00PM, RN bladder scan patient and got 49cc. At 18:48PM, RN bladder scan patient and got 68cc. Pt. had one bowel movement. RN removed soft wrists restraints as client is no longer picking at tubings. Patient denies pain. Hourly rounding done. No acute distress noted. Fall precautions in place; bed locked and bed alarm on. Will endorse care to maintenance mechanic 2nd shift, RN.
[2022-03-10 20:00] VITALS: BP 119/62
[2022-03-10] MEDS: DONEPEZIL 10 MG TABLET PO SCH (20:41)
[2022-03-11] VITALS: BP 111/73
[2022-03-11 04:00] VITALS: BP 115/76
--- NOTE | 2022-03-11 04:28 | NUR ---
Quiet night.AAOx2-3 Confused and disoriented. Admitted for general weakness, deconditioning. Fall precautions maintained. All needs attended. Hx of Afib, depression, HTN, Syncope. UTI. Incontinent of bowel and bladder. Kept clean and dry. No BM this shift. Tolerated po meds well. Slept well.
[2022-03-11 08:00] VITALS: BP 118/70
[2022-03-11] MEDS: [UNRECOGNIZED DRUG - OTHER] PO SCH (08:35)
[2022-03-11] MEDS: MERCAPTOPURINE 50 MG PO SCH (08:35)
[2022-03-11] MEDS: APIXABAN 2.5 MG TABLET PO SCH ×2 (08:35→17:35)
[2022-03-11] MEDS: DILTIAZEM HCL CD 240 MG CAP.SR.24H PO SCH (08:48)
[2022-03-11] MEDS: CLOTRIMAZOLE 1% CREAM 30 GM TUBE TOP SCH ×2 (08:48→17:35)
[2022-03-11] MEDS: SERTRALINE HCL 50 MG TABLET PO SCH (08:48)
[2022-03-11] MEDS: ENSURE ENLIVE (VAN) 240 ML LIQUID PO SCH ×2 (08:48→17:35)
--- NOTE | 2022-03-11 11:10 | NUR ---
INTERDISCIPLINARY TEAM CONFERENCE
[2022-03-11 16:48] VITALS: BP 111/72
[2022-03-11] MEDS: DONEPEZIL 10 MG TABLET PO SCH (20:26)
[2022-03-11 20:50] VITALS: BP 113/56
[2022-03-12 04:38] VITALS: BP 116/66
--- NOTE | 2022-03-12 05:51 | NUR ---
AAOx1-2 Confused and disoriented. Needs attended. Kept comfortable. VSS Fall precautions maintained. Siderails up for safety. No complaints presented during shift. No behavioral issues noted. Incontinent of urine and BM BM noted , very large amount of BM noted.
[2022-03-12 07:52] VITALS: BP 130/87
[2022-03-12] MEDS: ENSURE ENLIVE (VAN) 240 ML LIQUID PO SCH ×2 (08:00→17:01)
[2022-03-12] MEDS: [UNRECOGNIZED DRUG - OTHER] PO SCH (09:01)
[2022-03-12] MEDS: DILTIAZEM HCL CD 240 MG CAP.SR.24H PO SCH (09:01)
[2022-03-12] MEDS: SERTRALINE HCL 50 MG TABLET PO SCH (09:01)
[2022-03-12] MEDS: MERCAPTOPURINE 50 MG PO SCH (09:01)
[2022-03-12] MEDS: APIXABAN 2.5 MG TABLET PO SCH ×2 (09:02→17:01)
[2022-03-12] MEDS: CLOTRIMAZOLE 1% CREAM 30 GM TUBE TOP SCH ×2 (09:02→17:01)
[2022-03-12 16:00] VITALS: BP 107/52
[2022-03-12 20:27] VITALS: BP 114/58
[2022-03-12] MEDS: DONEPEZIL 10 MG TABLET PO SCH (20:34)
[2022-03-13 04:05] VITALS: BP 128/64
[2022-03-13 07:44] VITALS: BP 105/87
[2022-03-13] MEDS: [UNRECOGNIZED DRUG - OTHER] PO SCH (08:04)
[2022-03-13] MEDS: MERCAPTOPURINE 50 MG PO SCH (08:04)
[2022-03-13] MEDS: SERTRALINE HCL 50 MG TABLET PO SCH (08:04)
[2022-03-13] MEDS: CLOTRIMAZOLE 1% CREAM 30 GM TUBE TOP SCH ×2 (08:05→16:07)
[2022-03-13] MEDS: DILTIAZEM HCL CD 240 MG CAP.SR.24H PO SCH (08:05)
[2022-03-13] MEDS: ENSURE ENLIVE (VAN) 240 ML LIQUID PO SCH ×2 (08:05→14:19)
[2022-03-13] MEDS: APIXABAN 2.5 MG TABLET PO SCH ×2 (08:05→16:06)
[2022-03-13] MEDS ORDERED: REMEDY ESSENTIAL ZINC PASTE 113 GM TOP PRN (10:00)
--- NOTE | 2022-03-13 15:27 | NUR ---
a bottle of ventoux drink with two wine glasses found in pt side table in front of her ,pt seamed happy and said she drink it and have some food also ,charge nurse and norma caser and md notified .
[2022-03-13 16:00] VITALS: BP 124/65
[2022-03-13 20:00] VITALS: BP 113/58
[2022-03-13] MEDS: DONEPEZIL 10 MG TABLET PO SCH (20:46)
[2022-03-14 03:51] VITALS: BP 114/79
[2022-03-14 08:00] VITALS: BP 124/82
[2022-03-14] MEDS: SERTRALINE HCL 50 MG TABLET PO SCH (08:11)
[2022-03-14] MEDS: MERCAPTOPURINE 50 MG PO SCH (08:11)
[2022-03-14] MEDS: [UNRECOGNIZED DRUG - OTHER] PO SCH (08:11)
[2022-03-14] MEDS: ENSURE ENLIVE (VAN) 240 ML LIQUID PO SCH (08:12)
[2022-03-14] MEDS: APIXABAN 2.5 MG TABLET PO SCH ×2 (08:12→16:10)
[2022-03-14] MEDS: DILTIAZEM HCL CD 240 MG CAP.SR.24H PO SCH (08:12)
[2022-03-14] MEDS: CLOTRIMAZOLE 1% CREAM 30 GM TUBE TOP SCH ×2 (08:13→16:11)
[2022-03-14 12:00] VITALS: BP 124/62
[2022-03-14 16:00] VITALS: BP 137/75
[2022-03-14 20:00] VITALS: BP 119/69
[2022-03-14] MEDS: DONEPEZIL 10 MG TABLET PO SCH (21:03)
[2022-03-15] VITALS (7 sets, daily range): BP systolic 113–148; BP diastolic 63–94
[2022-03-15] MEDS: ACETAMINOPHEN ES 500 MG TABLET PO PRN ×2 (06:54→20:10)
[2022-03-15] MEDS: SERTRALINE HCL 50 MG TABLET PO SCH (08:01)
[2022-03-15] MEDS: [UNRECOGNIZED DRUG - OTHER] PO SCH (08:01)
[2022-03-15] MEDS: APIXABAN 2.5 MG TABLET PO SCH ×2 (08:01→16:06)
[2022-03-15] MEDS: ENSURE ENLIVE (VAN) 240 ML LIQUID PO SCH (08:01)
[2022-03-15] MEDS: MERCAPTOPURINE 50 MG PO SCH (08:01)
[2022-03-15] MEDS: DILTIAZEM HCL CD 240 MG CAP.SR.24H PO SCH (08:02)
[2022-03-15] MEDS: CLOTRIMAZOLE 1% CREAM 30 GM TUBE TOP SCH ×2 (09:24→16:07)
[2022-03-15] MEDS: DONEPEZIL 10 MG TABLET PO SCH (20:10)
[2022-03-16] VITALS: BP 125/70
[2022-03-16 04:00] VITALS: BP 118/75
[2022-03-16 08:00] VITALS: BP 97/56
[2022-03-16] MEDS: ENSURE ENLIVE (VAN) 240 ML LIQUID PO SCH (08:04)
[2022-03-16] MEDS: DILTIAZEM HCL CD 240 MG CAP.SR.24H PO SCH (08:04)
[2022-03-16] MEDS: APIXABAN 2.5 MG TABLET PO SCH ×2 (08:04→16:10)
[2022-03-16] MEDS: [UNRECOGNIZED DRUG - OTHER] PO SCH (08:04)
[2022-03-16] MEDS: SERTRALINE HCL 50 MG TABLET PO SCH (08:04)
[2022-03-16] MEDS: MERCAPTOPURINE 50 MG PO SCH (08:04)
[2022-03-16] MEDS: CLOTRIMAZOLE 1% CREAM 30 GM TUBE TOP SCH ×2 (08:05→16:11)
[2022-03-16 16:00] VITALS: BP 117/71
[2022-03-16 20:30] VITALS: BP 111/68
[2022-03-16] MEDS: ACETAMINOPHEN ES 500 MG TABLET PO PRN (20:40)
[2022-03-16] MEDS: DONEPEZIL 10 MG TABLET PO SCH (20:40)
[2022-03-17 04:43] VITALS: BP 134/74
[2022-03-17 07:45] VITALS: BP 115/81
[2022-03-17] MEDS: [UNRECOGNIZED DRUG - OTHER] PO SCH (08:08)
[2022-03-17] MEDS: DILTIAZEM HCL CD 240 MG CAP.SR.24H PO SCH (08:08)
[2022-03-17] MEDS: MERCAPTOPURINE 50 MG PO SCH (08:08)
[2022-03-17] MEDS: APIXABAN 2.5 MG TABLET PO SCH ×2 (08:08→16:06)
[2022-03-17] MEDS: SERTRALINE HCL 50 MG TABLET PO SCH (08:08)
[2022-03-17] MEDS: ENSURE ENLIVE (VAN) 240 ML LIQUID PO SCH (08:09)
[2022-03-17] MEDS: CLOTRIMAZOLE 1% CREAM 30 GM TUBE TOP SCH ×2 (09:15→17:08)
[2022-03-17 15:57] VITALS: BP 139/74
[2022-03-17 20:00] VITALS: BP 120/67
[2022-03-17] MEDS: DONEPEZIL 10 MG TABLET PO SCH (20:21)
[2022-03-18 04:00] VITALS: BP 113/78
--- NOTE | 2022-03-18 04:20 | NUR ---
She is alert, orient X2~3, Incontinent of urine, no BM during this shift, kept clean & dry, bed alarm on, side rails up for safety. Patient is trying to out of the bed restlessness and some what agitated. Complain of back pain, Vs stable, medicated with one tablet of percocet. Result effective, patient is slept well through out the night. we will monitor the patient.
[2022-03-18 08:00] VITALS: BP 131/87
[2022-03-18] MEDS: SERTRALINE HCL 50 MG TABLET PO SCH (09:53)
[2022-03-18] MEDS: DILTIAZEM HCL CD 240 MG CAP.SR.24H PO SCH (09:53)
[2022-03-18] MEDS: MERCAPTOPURINE 50 MG PO SCH (09:53)
[2022-03-18] MEDS: [UNRECOGNIZED DRUG - OTHER] PO SCH (09:53)
[2022-03-18] MEDS: APIXABAN 2.5 MG TABLET PO SCH ×2 (09:54→17:44)
[2022-03-18] MEDS: ENSURE ENLIVE (VAN) 240 ML LIQUID PO SCH (09:54)
[2022-03-18] MEDS: CLOTRIMAZOLE 1% CREAM 30 GM TUBE TOP SCH ×2 (09:54→17:44)
[2022-03-18 12:00] VITALS: BP 111/68
[2022-03-18] MEDS: ENSURE CLEAR 240 ML LIQUID (MIX BERRY) PO SCH ×2 (13:00→17:42)
--- NOTE | 2022-03-18 14:33 | NUR ---
INTERDISCIPLINARY TEAM CONFERENCE
[2022-03-18 16:00] VITALS: BP 126/93
[2022-03-18 20:00] VITALS: BP 118/72
[2022-03-18] MEDS: DONEPEZIL 10 MG TABLET PO SCH (20:45)
--- NOTE | 2022-03-19 01:05 | NUR ---
Janes Malone NP was called with new order of CT head without contrast stat.
--- NOTE | 2022-03-19 01:30 | NUR ---
pbx technician here for CT head, patient very combative, resistive, confused and uncooperative. made aware.
[2022-03-19] MEDS ORDERED: OLANZAPINE 10 MG VIAL IM ONE (01:45)
--- NOTE | 2022-03-19 01:55 | NUR ---
Zyprexa 5mg IM was given as ordered and needed for agitation/restlessness. Will monitor.
--- NOTE | 2022-03-19 02:35 | NUR ---
To CT via wheelchair.
--- NOTE | 2022-03-19 02:45 | NUR ---
Back from CT. Patient tolerated procedure well. Placed comfortably to bed.
[2022-03-19 04:00] VITALS: BP 123/68
--- NOTE | 2022-03-19 06:30 | NUR ---
Shift End Report: Vs stable. No complaint presented the whole night. Confused, combative, uncooperative and always trying to get out of bed. Frequent physical and visual monitoring rendered. Safety measures and fall precaution maintained at all times. All needs attended and met.
[2022-03-19 08:02] VITALS: BP 125/75
[2022-03-19] MEDS: [UNRECOGNIZED DRUG - OTHER] PO SCH (08:23)
[2022-03-19] MEDS: MERCAPTOPURINE 50 MG PO SCH (08:23)
[2022-03-19] MEDS: SERTRALINE HCL 50 MG TABLET PO SCH (08:24)
[2022-03-19] MEDS: APIXABAN 2.5 MG TABLET PO SCH ×2 (08:24→16:11)
[2022-03-19] MEDS: ENSURE CLEAR 240 ML LIQUID (MIX BERRY) PO SCH ×3 (08:24→16:11)
[2022-03-19] MEDS: DILTIAZEM HCL CD 240 MG CAP.SR.24H PO SCH (08:24)
[2022-03-19] MEDS: CLOTRIMAZOLE 1% CREAM 30 GM TUBE TOP SCH ×2 (09:19→16:12)
[2022-03-19 09:20] LABS: MEAN CORPUSCULAR HEMOGLOBIN 38.6 uug (24.7-32.8); MEAN CORPUSCULAR VOLUME 112.4 fL (75.5-95.3); PLATELET COUNT (AUTO) 352 K/uL (179-408)
[2022-03-19 09:45] LABS: THYROID STIMULATING HORMONE 3.866 mIU/mL (0.358-3.740)
[2022-03-19 10:01] LABS: ALANINE AMINOTRANSFERASE 25 U/L (14-59); ALKALINE PHOSPHATASE 107 U/L (50-136); ASPARTATE AMINOTRANSFERASE 19 U/L (15-37); BILIRUBIN,TOTAL 0.6 mg/dL (0.2-1.0); CARBON DIOXIDE 30 mmol/L (21-32); CHLORIDE 102 mmol/L (98-107); CHOLESTEROL 196 mg/dL (<200); CREATININE 1.8 mg/dL (0.6-1.3); GLUCOSE 110 mg/dL (74-106); HDL CHOLESTEROL 58 mg/dL (40-60); PHOSPHOROUS 4.9 mg/dL (2.5-4.9); POTASSIUM 5.3 mmol/L (3.5-5.1); TOTAL PROTEIN, SERUM 7.2 g/dL (6.4-8.2); TRIGLYCERIDES 156 MG/DL (30-150); UREA NITROGEN, BLOOD 30 mg/dL (7-18)
[2022-03-19 15:11] VITALS: BP 114/50
[2022-03-19 20:00] VITALS: BP 118/79
[2022-03-19] MEDS: DONEPEZIL 10 MG TABLET PO SCH (20:34)
[2022-03-20 04:00] VITALS: BP 120/73
[2022-03-20 06:35] LABS: HEMATOCRIT 34.7 % (31.2-41.9); MEAN CORPUSCULAR HEMOGLOBIN 38.4 uug (24.7-32.8); MEAN CORPUSCULAR VOLUME 111.8 fL (75.5-95.3); PLATELET COUNT (AUTO) 321 K/uL (179-408)
[2022-03-20 06:47] LABS: CARBON DIOXIDE 27 mmol/L (21-32); CHLORIDE 102 mmol/L (98-107); CREATININE 1.7 mg/dL (0.6-1.3); GLUCOSE 93 mg/dL (74-106); POTASSIUM 4.8 mmol/L (3.5-5.1); UREA NITROGEN, BLOOD 31 mg/dL (7-18)
[2022-03-20 07:22] VITALS: BP 125/80
[2022-03-20] MEDS: [UNRECOGNIZED DRUG - OTHER] PO SCH (08:23)
[2022-03-20] MEDS: MERCAPTOPURINE 50 MG PO SCH (08:23)
[2022-03-20] MEDS: SERTRALINE HCL 50 MG TABLET PO SCH (08:23)
[2022-03-20] MEDS: APIXABAN 2.5 MG TABLET PO SCH ×2 (08:24→16:11)
[2022-03-20] MEDS: DILTIAZEM HCL CD 240 MG CAP.SR.24H PO SCH (08:24)
[2022-03-20] MEDS: ENSURE CLEAR 240 ML LIQUID (MIX BERRY) PO SCH ×3 (08:40→16:11)
[2022-03-20] MEDS: CLOTRIMAZOLE 1% CREAM 30 GM TUBE TOP SCH ×2 (09:30→16:12)
[2022-03-20 15:36] VITALS: BP 108/75
[2022-03-20 20:00] VITALS: BP 123/68
[2022-03-20] MEDS: DONEPEZIL 10 MG TABLET PO SCH (20:09)
[2022-03-21 04:38] VITALS: BP 118/61
[2022-03-21 08:00] VITALS: BP 122/93
[2022-03-21 08:55] VITALS: BP 122/93
[2022-03-21] MEDS: SERTRALINE HCL 50 MG TABLET PO SCH (08:55)
[2022-03-21] MEDS: DILTIAZEM HCL CD 240 MG CAP.SR.24H PO SCH (08:55)
[2022-03-21] MEDS: APIXABAN 2.5 MG TABLET PO SCH (08:56)
[2022-03-21] MEDS: [UNRECOGNIZED DRUG - OTHER] PO SCH (08:57)
[2022-03-21] MEDS: MERCAPTOPURINE 50 MG PO SCH (08:57)
[2022-03-21] MEDS: ENSURE CLEAR 240 ML LIQUID (MIX BERRY) PO SCH ×2 (08:57→13:00)
[2022-03-21] MEDS: CLOTRIMAZOLE 1% CREAM 30 GM TUBE TOP SCH (09:00)
--- NOTE | 2022-03-21 16:24 | NUR ---
patient discharged to [facility], belongings are sent with patient, patient own medication sent with patient, no acute distress noted, ID removed, IV removed, discharge instructions given to daughter, verbalized understanding of it.
== END 2022-03-21 16:15 | disposition home health service (06) | DRG 280 ==
PROVIDERS: ADMIT Physical Medicine & Rehabilitation Pain Medicine; ATTEND Physical Medicine & Rehabilitation Pain Medicine
DX: I48.91 Unspecified atrial fibrillation (principal); I21.A1 Myocardial infarction type 2; E43 Unspecified severe protein-calorie malnutrition; N17.0 Acute kidney failure with tubular necrosis; I50.33 Acute on chronic diastolic (congestive) heart failure; G92.8 Other toxic encephalopathy; I13.0 Hypertensive heart and chronic kidney disease with heart failure and stage 1 through stage 4 chronic kidney disease, or unspecified chronic kidney disease; E87.20 Acidosis, unspecified; D68.59 Other primary thrombophilia; G91.2 (Idiopathic) normal pressure hydrocephalus; R53.1 Weakness; E86.0 Dehydration; E86.1 Hypovolemia; E88.09 Other disorders of plasma-protein metabolism, not elsewhere classified; F03.90 Unspecified dementia, unspecified severity, without behavioral disturbance, psychotic disturbance, mood disturbance, and anxiety; N18.9 Chronic kidney disease, unspecified; Z66 Do not resuscitate; Z85.828 Personal history of other malignant neoplasm of skin; R19.7 Diarrhea, unspecified; Z87.440 Personal history of urinary (tract) infections; D75.89 Other specified diseases of blood and blood-forming organs; Z88.2 Allergy status to sulfonamides; E53.8 Deficiency of other specified B group vitamins; R62.7 Adult failure to thrive
CPT/HCPCS: 36415; 70450; 71045; 83735; 84100; 84443; 85025; 93005; 97535-GO-CO; A4663; A6209; A6213; A9150; J2358

== ENCOUNTER 2022-03-23 09:25 | Inpatient (IN) | payer MEDICARE, BC ==
[~2022-03-23] VITALS: Ht 167.6 cm; Wt 63.5 kg
[~2022-03-23 09:25] MED LIST changes: -AMLO-212 PO; -LISI20TA30 PO; -METO25TA6 PO
[2022-03-23] MEDS ORDERED: AMIODARONE HCL IV 150 MG in IV DEXTROSE 5% 100 ML IV ONE (10:15)
[2022-03-23 11:12] LABS: HEMATOCRIT 40.3 % (31.2-41.9); MEAN CORPUSCULAR HEMOGLOBIN 38.2 uug (24.7-32.8); MEAN CORPUSCULAR VOLUME 113.1 fL (75.5-95.3); PLATELET COUNT (AUTO) 420 K/uL (179-408)
[2022-03-23] MEDS: AMIODARONE HCL IV 450 MG in IV DEXTROSE 5% 250 ML IV PRN ×2 (11:18→19:48)
[2022-03-23 11:23] LABS: CARBON DIOXIDE 24 mmol/L (21-32); CHLORIDE 100 mmol/L (98-107); CREATININE 2.7 mg/dL (0.6-1.3); GLUCOSE 187 mg/dL (74-106); POTASSIUM 5.7 mmol/L (3.5-5.1); UREA NITROGEN, BLOOD 48 mg/dL (7-18)
[2022-03-23 11:28] LABS: ALANINE AMINOTRANSFERASE 28 U/L (14-59); ALKALINE PHOSPHATASE 109 U/L (50-136); ASPARTATE AMINOTRANSFERASE 22 U/L (15-37); BILIRUBIN,TOTAL 0.6 mg/dL (0.2-1.0); TOTAL PROTEIN, SERUM 7.8 g/dL (6.4-8.2)
[2022-03-23 11:58] LABS: THYROID STIMULATING HORMONE 3.595 mIU/mL (0.358-3.740)
[2022-03-23] MEDS ORDERED: CALCIUM CHLORIDE 1 GM/10 ML DISP.SYRIN IVP ONE ×2 (13:45→18:00)
[2022-03-23] MEDS ORDERED: DEXTROSE 50% 50 ML DISP.SYRIN IV ONE (13:45)
[2022-03-23] MEDS ORDERED: INSULIN REGULAR, HUMAN 300 UNIT/3 ML VIAL IV ONE (13:45)
[2022-03-23] MEDS ORDERED: SODIUM POLYSTYRENE SULFONATE 15 G/60 ML LIQUID UDC PO ONE (13:45)
--- NOTE | 2022-03-23 15:00 | NUR ---
Attempted to start peripheral IV x 3 with no success. Per ERMD PICC Line has already been ordered. Per nursing supervisor stripping ETA for PICC Line is 1800.
--- NOTE | 2022-03-23 16:10 | NUR ---
Saline Lock started to RAC by ER physician, Amiodarone drip restarted.
[2022-03-23] MEDS ORDERED: MORPHINE SULFATE 2 MG/1 ML DISP.SYRIN IV PRN (18:00)
--- NOTE | 2022-03-23 18:00 | NUR ---
Midline inserted to left upper arm by PICC Line nurse.
[2022-03-23] MEDS ORDERED: SODIUM POLYSTYRENE SULFONATE ENEMA 30 G/120 ML BOTTLE RC ONE (18:01)
[2022-03-23] MEDS ORDERED: DEXTROSE 50% 50 ML DISP.SYRIN ONE (18:01)
[2022-03-23] MEDS ORDERED: INSULIN REGULAR, HUMAN 300 UNIT/3 ML VIAL ONE (18:02)
[2022-03-23] MEDS ORDERED: DILTIAZEM HCL 25 MG IV IV ONE (19:00)
[2022-03-23] MEDS ORDERED: CALCIUM GLUCONATE IV 0.1 GM in IV DEXTROSE 5% 50 ML IV ONE (19:00)
--- NOTE | 2022-03-23 19:05 | NUR ---
Received repoirt from SHAILESH Buchanan.
[2022-03-23] MEDS ORDERED: DILTIAZEM HCL 25 MG IV ONE (19:27)
[2022-03-23] MEDS: DILTIAZEM HCL IV 125 MG in IV NORMAL SALINE 100 ML IV PRN (19:44)
--- NOTE | 2022-03-23 19:49 | NUR ---
Pharmacy called to ask Dr. Champagne to DC the amiodarone drip order and Dr. Champagne made aware to DC Aminodarone drip order.
--- NOTE | 2022-03-23 20:25 | NUR ---
Report given to SHAILESH Reid.
--- NOTE | 2022-03-23 20:35 | NUR ---
Esperanza cleaning performed. Large BM and voided.
[2022-03-23] MEDS ORDERED: GENTAMICIN SULFATE IV SCH (21:00)
[2022-03-23] MEDS ORDERED: DEXTROSE 5% IV SCH (21:00)
[2022-03-23 22:30] VITALS: BP 133/106
--- NOTE | 2022-03-23 22:37 | NUR ---
Pt. admitted to CCU rm 5, under care of Dr. Bishop Belongs List completed SHAILESH Reid aware of patient's arrival to unit.
[2022-03-23 23:00] VITALS: BP 130/98
[2022-03-23] MEDS: DOCUSATE SODIUM 100 MG CAPSULE PO SCH (23:00)
[2022-03-23] MEDS: APIXABAN 2.5 MG TABLET PO SCH (23:00)
[2022-03-23] MEDS: DONEPEZIL 10 MG TABLET PO SCH (23:00)
[2022-03-24] VITALS (22 sets, daily range): BP systolic 98–145; BP diastolic 45–120
[2022-03-24] MEDS: DILTIAZEM HCL IV 125 MG in IV NORMAL SALINE 100 ML IV PRN ×2 (05:30→10:46)
[2022-03-24 05:34] LABS: HEMATOCRIT 38.3 % (31.2-41.9); MEAN CORPUSCULAR HEMOGLOBIN 38.6 uug (24.7-32.8); MEAN CORPUSCULAR VOLUME 111.6 fL (75.5-95.3); PLATELET COUNT (AUTO) 381 K/uL (179-408)
[2022-03-24 05:59] LABS: ALANINE AMINOTRANSFERASE 26 U/L (14-59); ALKALINE PHOSPHATASE 105 U/L (50-136); ASPARTATE AMINOTRANSFERASE 20 U/L (15-37); BILIRUBIN,TOTAL 0.8 mg/dL (0.2-1.0); CARBON DIOXIDE 23 mmol/L (21-32); CHLORIDE 102 mmol/L (98-107); CHOLESTEROL 215 mg/dL (<200); CREATININE 2.6 mg/dL (0.6-1.3); GLUCOSE 105 mg/dL (74-106); HDL CHOLESTEROL 48 mg/dL (40-60); MAGNESIUM 2.1 mg/dL (1.8-2.4); PHOSPHOROUS 5.6 mg/dL (2.5-4.9); POTASSIUM 4.8 mmol/L (3.5-5.1); TOTAL PROTEIN, SERUM 7.2 g/dL (6.4-8.2); TRIGLYCERIDES 123 MG/DL (30-150); UREA NITROGEN, BLOOD 48 mg/dL (7-18)
--- NOTE | 2022-03-24 06:00 | NUR ---
--RECEIVED PT NEW ADM FROM ER. PT HAS BEEN CONFUSED AND IS A/OX2. PT HAS BEEN IN A.FIB AND IS ON CARDIZEM DRIP AT 15MG/HR--VIA LEFT ARM ML. PT ALSO HAS RIGHT ARM HL (AC) I/P. PT ALSO HAS BEEN ON RA. POX 100-98%. RESPS REG/UNLAB. LUNGS SD CLR ROLANDO. PT HAS RED RASH ON BUTTOCKS AND PERIANAL AREA. PT HAS BEEN INCONT. SKIN CARE GIVEN. AM LABS DONE. PT HAS BEEN SLEEPING OFF AND ON. GEN COND HAS BEEN STABLE/GUARDED. PT ENDORSED TO SHAILESH BLACKWOOD. ARNALDO CASH
[2022-03-24] MEDS: PANTOPRAZOLE SODIUM 40 MG TABLET.DR PO SCH (07:00)
--- NOTE | 2022-03-24 07:30 | NUR ---
Received the patient from Eli CASH off-going nurse. Patient is alert and verbal, oriented to self with some confusion. Received the patient and observed with A-fib/RVR on the satellite project site monitor, on room air with saturation WNL. Patient observed with Amiodarone gtt @ 15mcg/Hr and NS @ 70ml/HR. Patient observed with bilateral upper extremities with bruises in various stages of healing. Patient observed with rash to her bilateral shoulders/midback and bilateral buttocks/sacrum/ perineal area and bilateral groin. Patient observed with urine incontinence; am care provided Patient is stable on the bed, semi fowlers position, the lowest position, call orr within reach turned and repositioned. Fall precaution in place.
--- NOTE | 2022-03-24 08:15 | NUR ---
Patient seen by the [facility] Erector Diltiazem gtt to be titrated down, after PO Diltiazem is tolerated and patient to be transferred to Telemetry unit. Amiodarone gtt discontinued as per previous MD orders and Pharmacy contacted for Diltiazem gtt. [facility]stone Erector called and informed that Diltiazem gtt will be initiated and titration down will be started once patient's rhythm is converted. Patient is stable on the bed, semi fowlers position, the lowest position, call orr within reach turned and repositioned. Fall precaution in place.
[2022-03-24] MEDS ORDERED: AMIODARONE HCL 200 MG TABLET PO SCH (09:00)
[2022-03-24] MEDS ORDERED: MERCAPTOPURINE 50 MG PO SCH (09:00)
[2022-03-24] MEDS ORDERED: Medication Not On Formulary EA (Amiodarone HCl 1 TAB) PO SCH (09:00)
[2022-03-24] MEDS ORDERED: MERCAPTOPURINE PO SCH (09:00)
[2022-03-24] MEDS ORDERED: [UNRECOGNIZED DRUG - OTHER] PO SCH (09:00)
[2022-03-24] MEDS: SERTRALINE HCL 50 MG TABLET PO SCH (10:00)
[2022-03-24] MEDS: APIXABAN 2.5 MG TABLET PO SCH ×2 (10:51→22:05)
[2022-03-24] MEDS: DILTIAZEM HCL CD 180 MG CAP.SR.24H PO SCH (10:54)
--- NOTE | 2022-03-24 11:00 | NUR ---
Patient remains the same with no decline in her status, A-fib/RVR continues to be observed on the monitor. Pharmacy contacted and Diltiazem gtt collected and started as per MD orders. PO Diltiazem administered as per MD orders. Patient is stable on the bed, semi fowlers position, the lowest position, call orr within reach turned and repositioned. Fall precaution in place.
[2022-03-24] MEDS ORDERED: ONDANSETRON 4 MG/2 ML VIAL IV PRN (12:15)
[2022-03-24] MEDS: IV NS 1000 ML 1,000 ML IV PRN (12:18)
[2022-03-24] MEDS: KETOCONAZOLE 2% CREAM 30 GM TUBE TP SCH ×2 (17:39→21:00)
--- NOTE | 2022-03-24 19:45 | NUR ---
Patient remains the same with no decline in her status, A-Fib/RVR observed on the monitor, PM care provide, Bedside report given to Eli the on-coming nurse, informed of medication change as per MD orders. Patient is stable on the bed, semi fowlers position, the lowest position, call orr within reach turned and repositioned. Fall precaution in place.
[2022-03-24] MEDS: DONEPEZIL 10 MG TABLET PO SCH (22:02)
[2022-03-24] MEDS: DOCUSATE SODIUM 100 MG CAPSULE PO SCH (22:02)
[2022-03-24] MEDS: TEMAZEPAM 7.5 MG CAPSULE PO PRN (22:42)
[2022-03-24] MEDS ORDERED: QUETIAPINE FUMARATE 25 MG TABLET PO ONE (23:45)
[2022-03-25] VITALS (23 sets, daily range): BP systolic 92–166; BP diastolic 45–124
[2022-03-25] MEDS: DILTIAZEM HCL IV 125 MG in IV NORMAL SALINE 100 ML IV PRN (00:13)
--- NOTE | 2022-03-25 06:00 | NUR ---
--PT CONT. WITH STABLE VS. PT HAS BEEN CONFUSED. A/OX2. PT FOLLOWS SOME SIMPLE COMMDS. PT HAS BEEN VERY AGITATED AND HAS NOT SLEPT. PT MED WITH RESTORIL PO-BUT PT STILL HAS NOT SLEPT. DR. MCKEON CONTACTED AND INFORMED OF PT'S COND. AND ORD. SEROQUEL 25MG PO-BUT PT CONT. TO BE AGITATED. NO S/S OF ACUTE DISTRESS. PT HAS BEEN ON RA. POX 98-99%. RESPS REG/UNLAB. PT HAS BEEN IN A. FIB AND CONT. ON CARDIZEM DRIP-NOW DOWN TO 4MG. HR HAS BEEN 70-80'S. IV I/P VIA LEFT ARM ML. PT HAD AN IV VIA RIGHT BUT SITE WAS LEAKING-IV D/CD. PT HAS BEEN INCONT. WITH URINE AND SM. AMT(SMEAR) OF BROWN STOOL. BATH AND LINEN CHANGE DONE. SKIN CARE GIVEN TO REDDENED AREAS OF BUTTOCKS AND PERIANAL AREA. PT ENDORSED TO SHAILESH WILLIAM. GEN. COND HAS BEEN STABLE/GUARDED. ARNALDO CASH
[2022-03-25] MEDS: PANTOPRAZOLE SODIUM 40 MG TABLET.DR PO SCH (07:47)
[2022-03-25 07:58] LABS: HEMATOCRIT 32.2 % (31.2-41.9); MEAN CORPUSCULAR HEMOGLOBIN 38.8 uug (24.7-32.8); MEAN CORPUSCULAR VOLUME 111.7 fL (75.5-95.3); PLATELET COUNT (AUTO) 264 K/uL (179-408)
[2022-03-25 08:12] LABS: CARBON DIOXIDE 24 mmol/L (21-32); CHLORIDE 108 mmol/L (98-107); CREATININE 2.1 mg/dL (0.6-1.3); GLUCOSE 98 mg/dL (74-106); MAGNESIUM 1.8 mg/dL (1.8-2.4); PHOSPHOROUS 3.7 mg/dL (2.5-4.9); POTASSIUM 4.9 mmol/L (3.5-5.1); UREA NITROGEN, BLOOD 35 mg/dL (7-18)
[2022-03-25] MEDS: DILTIAZEM HCL CD 180 MG CAP.SR.24H PO SCH (09:01)
[2022-03-25] MEDS: SERTRALINE HCL 50 MG TABLET PO SCH (09:01)
[2022-03-25] MEDS: KETOCONAZOLE 2% CREAM 30 GM TUBE TP SCH ×2 (09:02→21:00)
[2022-03-25] MEDS: APIXABAN 2.5 MG TABLET PO SCH ×2 (09:05→21:30)
[2022-03-25] MEDS: IV NS 1000 ML 1,000 ML IV PRN (09:06)
[2022-03-25] MEDS: GLUCERNA SHAKE 237 ML CAN PO SCH (11:30)
--- NOTE | 2022-03-25 19:06 | NUR ---
Patient HR 130-150s after being turned for ADLs. Other VS WNL. No complaints of pain, pt eating bites of dinner at the time. Cardizem gtt previously titrated off has been restarted per MD Topher.
[2022-03-25] MEDS: DOCUSATE SODIUM 100 MG CAPSULE PO SCH (21:16)
[2022-03-25] MEDS: DONEPEZIL 10 MG TABLET PO SCH (21:16)
[2022-03-25] MEDS ORDERED: MAGNESIUM OXIDE 400 MG TABLET PO ONE (23:45)
[2022-03-26] VITALS (24 sets, daily range): BP systolic 105–183; BP diastolic 34–106
[2022-03-26] MEDS: hydrALAZINE HCL 20 MG/1 ML VIAL IV PRN ×2 (01:13→21:13)
[2022-03-26] MEDS ORDERED: LORAZEPAM 2 MG/1 ML VIAL IV ONE (02:16)
[2022-03-26] MEDS: DILTIAZEM HCL IV 125 MG in IV NORMAL SALINE 100 ML IV PRN (04:18)
--- NOTE | 2022-03-26 06:00 | NUR ---
--PT CONT. TO BE CONFUSED-ANSWERS TO HER NAME-FOLLOWS SOME S. COMMDS. PT HAS BP ELEVATION-180'S SYST. [employer] MAYTE CONTACTED AND ORD. APRESOLINE 10MG IVP(SEE EMAR). ATIVAN 1MG IVP X1 ORD. LATER IN SHIFT FOR AGITATION-ORD BY [employer] NINOSKA DAMON. O2 ALSO ORD. DUE PT PT'S OCCASS LOW SAT. IN THE 80'S. IV I/P VIA LEFT ARM ML. PT CONT. IN A.FIB WITH HR >100 AT TIMES. BATH AND LINEN CHANGE DONE(PT HAS BEEN INCONT WITH URINE AND STOOL). GEN COND HAS BEEN STABLE/GUARDED. PT ENDORSED TO ANNMARIE MCINTOSH RN
--- NOTE | 2022-03-26 06:01 | NUR ---
PT CONT. ON CARDIZEM DRIP AT 15MG/HR. ARNALDO RN
[2022-03-26 08:32] LABS: HEMATOCRIT 32.9 % (31.2-41.9); MEAN CORPUSCULAR HEMOGLOBIN 38.8 uug (24.7-32.8); MEAN CORPUSCULAR VOLUME 111.7 fL (75.5-95.3); PLATELET COUNT (AUTO) 246 K/uL (179-408)
[2022-03-26 08:42] LABS: CARBON DIOXIDE 22 mmol/L (21-32); CHLORIDE 108 mmol/L (98-107); CREATININE 1.7 mg/dL (0.6-1.3); GLUCOSE 97 mg/dL (74-106); MAGNESIUM 1.6 mg/dL (1.8-2.4); PHOSPHOROUS 3.6 mg/dL (2.5-4.9); POTASSIUM 4.3 mmol/L (3.5-5.1); UREA NITROGEN, BLOOD 26 mg/dL (7-18)
[2022-03-26] MEDS: PANTOPRAZOLE SODIUM 40 MG TABLET.DR PO SCH (08:52)
[2022-03-26] MEDS: DILTIAZEM HCL CD 180 MG CAP.SR.24H PO SCH (08:54)
[2022-03-26] MEDS: METOPROLOL TARTRATE 50 MG TABLET PO SCH ×2 (08:55→16:00)
[2022-03-26] MEDS: SERTRALINE HCL 50 MG TABLET PO SCH (08:55)
[2022-03-26] MEDS: GLUCERNA SHAKE 237 ML CAN PO SCH (08:56)
[2022-03-26] MEDS: KETOCONAZOLE 2% CREAM 30 GM TUBE TP SCH ×2 (08:57→20:21)
[2022-03-26] MEDS: APIXABAN 2.5 MG TABLET PO SCH ×2 (09:06→20:18)
[2022-03-26] MEDS ORDERED: MAGNESIUM SULFATE/D5W 100 ML IV SCH (09:45)
[2022-03-26] MEDS: DONEPEZIL 10 MG TABLET PO SCH (20:16)
[2022-03-26] MEDS: DOCUSATE SODIUM 100 MG CAPSULE PO SCH (20:16)
[2022-03-27] VITALS (16 sets, daily range): BP systolic 109–157; BP diastolic 37–100
[2022-03-27] MEDS: METOPROLOL TARTRATE 50 MG TABLET PO SCH ×3 (00:08→16:33)
[2022-03-27 05:43] LABS: HEMATOCRIT 31.4 % (31.2-41.9); PLATELET COUNT (AUTO) 221 K/uL (179-408)
[2022-03-27 05:55] LABS: CARBON DIOXIDE 23 mmol/L (21-32); CHLORIDE 111 mmol/L (98-107); CREATININE 1.9 mg/dL (0.6-1.3); GLUCOSE 108 mg/dL (74-106); PHOSPHOROUS 3.4 mg/dL (2.5-4.9); UREA NITROGEN, BLOOD 32 mg/dL (7-18)
[2022-03-27] MEDS: PANTOPRAZOLE SODIUM 40 MG TABLET.DR PO SCH (06:41)
[2022-03-27] MEDS: SERTRALINE HCL 50 MG TABLET PO SCH (08:59)
[2022-03-27] MEDS: KETOCONAZOLE 2% CREAM 30 GM TUBE TP SCH ×2 (09:00→21:00)
--- NOTE | 2022-03-27 09:00 | NUR ---
Patient status changed to Telemetry. Vital signs done Q2 hrs.
[2022-03-27] MEDS: APIXABAN 2.5 MG TABLET PO SCH ×2 (09:01→22:14)
[2022-03-27] MEDS: DILTIAZEM HCL CD 180 MG CAP.SR.24H PO SCH (09:02)
[2022-03-27] MEDS: GLUCERNA SHAKE 237 ML CAN PO SCH (09:02)
[2022-03-27] MEDS ORDERED: REMEDY ESSENTIAL ZINC PASTE 113 GM TOP PRN (11:30)
--- NOTE | 2022-03-27 17:15 | NUR ---
Report called to Mansi on 3rd floor.
--- NOTE | 2022-03-27 18:26 | NUR ---
PATIENT ARRIVED ON FLOOR AT 1816 VIA BED TRANSFER. RECEIVED PATIENT FROM SHAILESH FERREIRA. DENIES PAIN. ALERT AND ABLE TO MAKE NEEDS KNOWN. VITALS STABLE. BP 130/ 52, HR 79, RESP 18, TEMP 98.2 O2 AT ROOM AIR 97%. HEAD OF BED IN SEMI [place]IAM[place] POSITION, CALL TONG WITHIN REACH. NO CONCERNS NOTED. ORIN Espino RN
[2022-03-27] MEDS: TEMAZEPAM 7.5 MG CAPSULE PO PRN (22:11)
[2022-03-27] MEDS: DONEPEZIL 10 MG TABLET PO SCH (22:11)
[2022-03-27] MEDS: DOCUSATE SODIUM 100 MG CAPSULE PO SCH (22:11)
[2022-03-28] MEDS: METOPROLOL TARTRATE 50 MG TABLET PO SCH ×3 (00:04→21:32)
[2022-03-28 00:26] VITALS: BP 135/68
[2022-03-28 05:13] VITALS: BP_SYST 124; BP_SYST 135; BP_DIAS 39; BP_DIAS 68
[2022-03-28] MEDS: PANTOPRAZOLE SODIUM 40 MG TABLET.DR PO SCH (05:47)
[2022-03-28] MEDS: APIXABAN 2.5 MG TABLET PO SCH ×2 (08:35→21:33)
[2022-03-28] MEDS: DILTIAZEM HCL CD 180 MG CAP.SR.24H PO SCH (08:36)
[2022-03-28] MEDS: SERTRALINE HCL 50 MG TABLET PO SCH (08:36)
[2022-03-28] MEDS: GLUCERNA SHAKE 237 ML CAN PO SCH (08:37)
[2022-03-28 08:48] VITALS: BP 151/73
[2022-03-28 11:03] VITALS: BP 135/56
[2022-03-28] MEDS: KETOCONAZOLE 2% CREAM 30 GM TUBE TP SCH ×2 (15:01→21:33)
[2022-03-28 15:14] VITALS: BP 127/64
[2022-03-28 20:00] VITALS: BP 134/76
[2022-03-28] MEDS: ACETAMINOPHEN 325 MG TABLET PO PRN (21:31)
[2022-03-28] MEDS: DONEPEZIL 10 MG TABLET PO SCH (21:31)
[2022-03-28] MEDS: DOCUSATE SODIUM 100 MG CAPSULE PO SCH (21:33)
[2022-03-29 04:00] VITALS: BP 137/80
[2022-03-29 05:43] LABS: CARBON DIOXIDE 20 mmol/L (21-32); CHLORIDE 111 mmol/L (98-107); CREATININE 1.6 mg/dL (0.6-1.3); GLUCOSE 99 mg/dL (74-106); PHOSPHOROUS 3.2 mg/dL (2.5-4.9); POTASSIUM 3.8 mmol/L (3.5-5.1); UREA NITROGEN, BLOOD 29 mg/dL (7-18)
[2022-03-29] MEDS: PANTOPRAZOLE SODIUM 40 MG TABLET.DR PO SCH (05:58)
[2022-03-29 07:27] LABS: HEMATOCRIT 36.3 % (31.2-41.9); MEAN CORPUSCULAR HEMOGLOBIN 37.6 uug (24.7-32.8); MEAN CORPUSCULAR VOLUME 112.2 fL (75.5-95.3); PLATELET COUNT (AUTO) 119 K/uL (179-408)
[2022-03-29] MEDS: DILTIAZEM HCL CD 180 MG CAP.SR.24H PO SCH (08:11)
[2022-03-29] MEDS: SERTRALINE HCL 50 MG TABLET PO SCH (08:11)
[2022-03-29] MEDS: METOPROLOL TARTRATE 50 MG TABLET PO SCH ×2 (08:11→20:34)
[2022-03-29] MEDS: GLUCERNA SHAKE 237 ML CAN PO SCH (08:11)
[2022-03-29] MEDS: KETOCONAZOLE 2% CREAM 30 GM TUBE TP SCH ×2 (08:24→20:35)
[2022-03-29 11:05] VITALS: BP 123/71
[2022-03-29] MEDS: APIXABAN 2.5 MG TABLET PO SCH ×2 (11:20→20:33)
[2022-03-29 14:03] LABS: *BILIRUBIN,URIN 2+ (NEGATIVE); *BLOOD, URINE 3+ (NEGATIVE); *CLARITY,URINE CLOUDY (CLEAR); *COLOR,URINE RED (YELLOW); *KETONES,URINE TRACE (NEGATIVE); LEUKOCYTE ESTERASE ,URINE 3+ (NEGATIVE); NITRITE, URINE NEGATIVE (NEGATIVE); UGLUCOSE NEGATIVE (NEGATIVE)
[2022-03-29 14:18] LABS: RBC,URINE TNTC /HPF (0-3)
[2022-03-29 14:19] LABS: BACTERIA,URINE MODERATE /HPF (NONE SEEN); SQUAMOUS EPITHELIAL CELL,UR FEW /HPF (NONE SEEN); WBC,URINE 80-100 /HPF (0-3)
[2022-03-29 15:17] VITALS: BP 122/73
[2022-03-29 20:00] VITALS: BP 123/90
[2022-03-29] MEDS: DONEPEZIL 10 MG TABLET PO SCH (20:34)
[2022-03-29] MEDS: ACETAMINOPHEN 325 MG TABLET PO PRN (20:34)
[2022-03-29] MEDS: DOCUSATE SODIUM 100 MG CAPSULE PO SCH (20:35)
[2022-03-30 04:00] VITALS: BP 129/75
[2022-03-30] MEDS: PANTOPRAZOLE SODIUM 40 MG TABLET.DR PO SCH (06:36)
[2022-03-30] MEDS: SERTRALINE HCL 50 MG TABLET PO SCH (08:11)
[2022-03-30] MEDS: GLUCERNA SHAKE 237 ML CAN PO SCH (08:12)
[2022-03-30] MEDS: KETOCONAZOLE 2% CREAM 30 GM TUBE TP SCH (08:12)
[2022-03-30] MEDS: DILTIAZEM HCL CD 180 MG CAP.SR.24H PO SCH (08:12)
[2022-03-30] MEDS: METOPROLOL TARTRATE 50 MG TABLET PO SCH (08:12)
[2022-03-30] MEDS: APIXABAN 2.5 MG TABLET PO SCH (08:12)
[2022-03-30 11:36] VITALS: BP 114/78
[2022-03-30] MEDS ORDERED: MEROPENEM 1 G in IV NORMAL SALINE 100 ML IV ONE (14:00)
[2022-03-30] MEDS ORDERED: DOCU-141 PO (14:30)
[2022-03-30] MEDS ORDERED: NUT.237L36 PO (14:30)
[2022-03-30] MEDS ORDERED: MERO1VIA23 IV (14:30)
[2022-03-30] MEDS ORDERED: PANT40TA49 PO (14:30)
[2022-03-30] MEDS ORDERED: DILT180C66 PO (14:30)
[2022-03-30] MEDS ORDERED: METO50TA16 PO (14:30)
[2022-03-30 16:31] VITALS: BP 121/69
--- NOTE | 2022-03-30 19:55 | NUR ---
Patient was discharged to [facility] via ambulance. Awake, alert, in no apparent distress. VS taken and recorded.
[2022-03-31] MEDS ORDERED: MEROPENEM 1 G in IV NORMAL SALINE 100 ML IV SCH (02:00)
== END 2022-03-30 22:15 | DRG 871 ==
LOC: ER 09:25 → CCU 21:52 → TELE3 03-27 18:19 → MEDSURG3 03-28 15:35
PROVIDERS: ADMIT Internal Medicine; ATTEND Nurse Practitioner Acute Care
PROC: 05H633Z Insertion of Infusion Device into Left Subclavian Vein, Percutaneous Approach (ICD-10-PCS; principal; 2022-03-23)
PROC: B547ZZA Ultrasonography of Left Subclavian Vein, Guidance (ICD-10-PCS; 2022-03-23)
DX: A41.9 Sepsis, unspecified organism (principal); E43 Unspecified severe protein-calorie malnutrition; N17.0 Acute kidney failure with tubular necrosis; I63.9 Cerebral infarction, unspecified; I50.23 Acute on chronic systolic (congestive) heart failure; D68.59 Other primary thrombophilia; E87.1 Hypo-osmolality and hyponatremia; G91.2 (Idiopathic) normal pressure hydrocephalus; N39.0 Urinary tract infection, site not specified; I42.9 Cardiomyopathy, unspecified; I13.0 Hypertensive heart and chronic kidney disease with heart failure and stage 1 through stage 4 chronic kidney disease, or unspecified chronic kidney disease; I48.20 Chronic atrial fibrillation, unspecified; E87.20 Acidosis, unspecified; G93.40 Encephalopathy, unspecified; E53.8 Deficiency of other specified B group vitamins; E87.5 Hyperkalemia; E87.8 Other disorders of electrolyte and fluid balance, not elsewhere classified; D75.89 Other specified diseases of blood and blood-forming organs; N18.9 Chronic kidney disease, unspecified; R62.7 Adult failure to thrive; Z66 Do not resuscitate; Z79.899 Other long term (current) drug therapy; Z85.828 Personal history of other malignant neoplasm of skin; Z86.73 Personal history of transient ischemic attack (TIA), and cerebral infarction without residual deficits; Z87.440 Personal history of urinary (tract) infections; Z79.01 Long term (current) use of anticoagulants; Z88.2 Allergy status to sulfonamides; I25.2 Old myocardial infarction; R55 Syncope and collapse; I08.1 Rheumatic disorders of both mitral and tricuspid valves; Z74.09 Other reduced mobility; F32.A Depression, unspecified; Z68.22 Body mass index [BMI] 22.0-22.9, adult; M89.8X9 Other specified disorders of bone, unspecified site; Z20.822 Contact with and (suspected) exposure to COVID-19; F01.50 Vascular dementia, unspecified severity, without behavioral disturbance, psychotic disturbance, mood disturbance, and anxiety
CPT/HCPCS: 36415; 70450; 71045; 83605; 83735; 84100; 84443; 84484; 85025; 85730; 93005; A4663; G0378; J0282; J0360; J1580; J1815; J2060; J2185; J3475; J3490; J7040; J7050